=== PATIENT | male | born 1935 | race Caucasian/White ===

== ENCOUNTER → 2016-10-12 | Outpatient (CLI) | payer OTHER, MEDICARE ==
[~2016-10-12] MED LIST: IOPAMIDOL (ISOVUE-300) 100 ML BTL IV ONE
[2016-10-12 12:25] LABS: CREATININE 1.8 mg/dL (0.7-1.3)
== END ==
LOC: FIMAGING 11:42
PROVIDERS: ATTEND Internal Medicine
DX: R06.02 Shortness of breath (principal)
CPT/HCPCS: 71275; Q9967

== ENCOUNTER → 2016-10-17 | Outpatient (CLI) | payer OTHER, MEDICARE | LOC: BHFA 13:00 | PROVIDERS: ATTEND Internal Medicine Cardiovascular Disease | DX: R06.02 Shortness of breath (principal) | CPT/HCPCS: 78452; 93017; A9500; J2785 ==

== ENCOUNTER 2016-10-22 14:04 | Inpatient (IN) | payer OTHER, MEDICARE ==
--- NOTE | 2016-10-22 14:35 | CPEKG ---
Heart Rate: 124 RR Interval: 484 QRSD Interval: 156 QT Interval: 380 QTC Interval: 546 QRS Trona: -5 T Wave Trona: 170 EKG Severity - ABNORMAL ECG - EKG Impression: ATRIAL FIBRILLATION EKG Impression: RUN OF VENTRICULAR PREMATURE COMPLEXES EKG Impression: IVCD, CONSIDER ATYPICAL LBBB Electronically Signed By: Fredo Henderson 22-Oct-2016 14:43:16
[2016-10-22] MEDS ORDERED: NITROGLYCERIN 2% 1 GM PACKET TP ONE (14:47)
[2016-10-22] MEDS ORDERED: FUROSEMIDE 40 MG/4 ML VIAL IVP ONE (14:48)
[2016-10-22 14:53] LABS: % IMMATURE GRANULYOCYTES 0.2 % (0.0-1.1); ABSOLUTE IMMATURE GRANULOCYTES 0.01 10^3/uL (0.00-0.10); ADD DIFF? NO; ADD MORPH? NO; ADD SCAN? NO; ATYPICAL LYMPHOCYTE FLAG 10 (0-99); FRAGMENT RBC FLAG 0 (0-99); HEMATOCRIT 40.5 % (40.0-51.0); HEMOGLOBIN 13.2 g/dL (13.7-17.5); LEFT SHIFT FLG 0 (0-99); LIPEMIA HEMOLYSIS FLAG 80 (0-99); MEAN CELL HEMOGLOBIN 32.8 pg (27.9-34.1); MEAN CELL HEMOGLOBIN CONCENTR. 32.6 g/dL (32.4-36.7); MEAN CELL VOLUME 100.7 fL (81.5-99.8); MEAN PLATELET VOLUME 12.6 fL (8.7-11.7); PLATELET CLUMPS FLAG 0 (0-99); PLATELET COUNT 124 10^3/uL (150-400); RED BLOOD CELL COUNT 4.02 10^6/uL (4.40-6.38); RED CELL DISTRIBUTION WIDTH 14.3 % (11.5-15.2)
--- NOTE | 2016-10-22 14:56 | EDPHY ---
H & P Stated Complaint: SOB, Weakness-from [facility], EKG A flutter Time Seen by Provider: 10/22/16 14:28 HPI/ROS: CHIEF COMPLAINT: SHORTNESS OF BREATH HISTORY OF PRESENT ILLNESS: Patient is an 81-year-old man with a history of CHF comes to the emergency department from the [facility] complaining of shortness of breath. Dr. Carmona called prior to his arrival. He recommended admission to the hospitalist service. The patient has a history of atrial fibrillation as well that is worsened over last couple of months. He is on Coumadin. 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 He also had a catheterization last year that was unremarkable and a patent LAD stent from 2006. The patient is comfortable but desaturates with exertion. He he does also have some lower extremity edema compared to baseline. REVIEW OF SYSTEMS: Constitutional: denies: chills, fever, recent illness, recent injury EENTM: denies: blurred vision, double vision, nose congestion Respiratory: see HPI Cardiac: denies: chest pain, irregular heart rate, lightheadedness, palpitations Gastrointestinal/Abdominal: denies: abdominal pain, diarrhea, nausea, vomiting, blood streaked stools Genitourinary: denies: dysuria, frequency, hematuria, pain Musculoskeletal: denies: joint pain, muscle pain Skin: denies: lesions, rash, jaundice, bruising Neurological: denies: headache, numbness, paresthesia, tingling, dizziness, weakness Hematologic/Lymphatic: denies: blood clots, easy bleeding, easy bruising Immunologic/allergic: denies: HIV/AIDS, transplant EXAM: GENERAL: Well-appearing, well-nourished and in no acute distress. HEAD: Atraumatic, normocephalic. EYES: Pupils equal round and reactive to light, extraocular movements intact, sclera anicteric, conjunctiva are normal. ENT: TMs normal, nares patent, oropharynx clear without exudates. Moist mucous membranes. NECK: Normal range of motion, supple without lymphadenopathy or JVD. LUNGS: Lower lobe crackles HEART: Regular rate and rhythm without murmurs, rubs or gallops. ABDOMEN: Soft, nontender, normoactive bowel sounds. No guarding, no rebound. No masses appreciated. BACK: No CVA tenderness, no spinal tenderness, step-offs or deformities EXTREMITIES: 1+ edema NEUROLOGICAL: Cranial nerves II through XII grossly intact. Normal speech, normal gait. 5/5 strength, normal movement in all extremities, normal sensation PSYCH: Normal mood, normal affect. SKIN: Warm, dry, normal turgor, no visible rashes or lesions. Source: Patient Exam Limitations: No limitations - Personal History Current Tetanus/Diphtheria Vaccine: Unsure - Medical/Surgical History Hx Asthma: No Hx Chronic Respiratory Disease: Yes Hx Diabetes: No Hx Cardiac Disease: Yes Hx Renal Disease: No Hx Cirrhosis: No Hx Alcoholism: Yes Hx HIV/AIDS: No Hx Splenectomy or Spleen Trauma: No Other PMH: HTN, COPD, A flutter, [place], high cholesterol, prostate issues, cardiomyopathy, CHF, pulmonary HTN, Stents, Vasecetomy, Shoulder surgery, ETOH. - Family History Significant Family History: No pertinent family hx - Social History Smoking Status: Former smoker Alcohol Use: Sober Drug Use: None Constitutional: Initial Vital Signs Temperature (C) 36.3 C 10/22/16 14:06 Heart Rate 113 H 10/22/16 14:06 Respiratory Rate 18 10/22/16 14:06 Blood Pressure 127/92 H 10/22/16 14:06 O2 Sat (%) 94 10/22/16 14:06 O2 Delivery Mode Room Air Allergies/Adverse Reactions: No Allergies [NKDA] Allergy (Verified 10/22/16 14:14) Home Medications: Medication Instructions Recorded Antiox #11/Om3/Dha/Epa/Lut/Dani 1 each PO 03/24/13 [Ocuvite Adult 50+ Softgel] Aspirin [Aspirin 81mg (OTC)] 81 mg PO DAILY 03/24/13 CARVEDILOL PHOSPHATE [Coreg Cr] 37.5 mg PO BID 03/24/13 Coenzyme Q10 [Co Q-10 30 mg (OTC)] 100 mg PO DAILY 03/24/13 Pravastatin Sodium 20 mg PO 03/24/13 Vit C 1,000 mg BID 03/24/13 Vit D 1,000 iunits 03/24/13 HCTZ (RX) 02/07/16 Lisinopril 10/22/16 Warfarin Sodium 10/22/16 Medical Decision Making - Diagnostics EKG Interpretation: An EKG obtained and was read and documented in trace view. Please see trace view for full reading and report. Atrial fibrillation, worsened compared to previous, no acute ischemic changes, left bundle branch block Imaging: X-ray: [chest x-ray ] was obtained. I viewed the images myself on the PACS system. My interpretation of the images is: Pulmonary edema. The radiologist interpretation is pulmonary edema and left lower lobe infiltrate. ED Course/Re-evaluation: 3:00 p.m. I discussed the case with Dr. Alek Torres who will admit to the hospital service to PCU. 3:30 p.m. we discussed the x-ray results. Will start the patient on antibiotics. I think that the primary problem is his pulmonary edema and CHF. I will therefore hold the sepsis bolus of IV fluids although he will likely qualifies for severe sepsis based on his Coumadin use and INR elevation. IV fluid bolus would likely hurt this patient more than help him. Differential Diagnosis: Partial list of the Differential diagnosis considered include but were not limited to; CHF, pneumonia, and although unlikely based on the history and physical exam, I also considered acute coronary disease, dissection, aneurysm, pneumothorax, COPD. Critical Care Time: Critical care time spent by me, Dr. Henderson exclusive with this patient was 25 minutes, exclusive of the PA time exclusive of procedures. The organ system that was at risk was cardiovascular and I gave treatment for fluid overload with diuretics and vasodilators to prevent worsening of the patient's condition - Data Points Laboratory Results: Laboratory Results 10/22/16 14:30 10/22/16 14:30 10/22/16 10/22/16 10/22/16 14:30 14:30 14:30 WBC 6.06 10^3/uL 10^3/uL (3.80-9.50) RBC 4.02 10^6/uL L 10^6/uL (4.40-6.38) Hgb 13.2 g/dL L g/dL (13.7-17.5) Hct 40.5 % % (40.0-51.0) MCV 100.7 fL H fL (81.5-99.8) MCH 32.8 pg pg (27.9-34.1) MCHC 32.6 g/dL g/dL (32.4-36.7) RDW 14.3 % % (11.5-15.2) Plt Count 124 10^3/uL L 10^3/uL (150-400) MPV 12.6 fL H fL (8.7-11.7) Neut % (Auto) 68.3 % % (39.3-74.2) Lymph % (Auto) 18.2 % % (15.0-45.0) Hinds % (Auto) 11.2 % % (4.5-13.0) Eos % (Auto) 1.3 % % (0.6-7.6) Baso % (Auto) 0.8 % % (0.3-1.7) Nucleat RBC Rel Count 0.0 % % (0.0-0.2) Absolute Neuts (auto) 4.14 10^3/uL 10^3/uL (1.70-6.50) Absolute Lymphs (auto) 1.10 10^3/uL 10^3/uL (1.00-3.00) Absolute Monos (auto) 0.68 10^3/uL 10^3/uL (0.30-0.80) Absolute Eos (auto) 0.08 10^3/uL 10^3/uL (0.03-0.40) Absolute Basos (auto) 0.05 10^3/uL 10^3/uL (0.02-0.10) Absolute Nucleated RBC 0.00 10^3/uL 10^3/uL (0-0.01) Immature Gran % 0.2 % % (0.0-1.1) Immature Gran # 0.01 10^3/uL 10^3/uL (0.00-0.10) Sodium 142 mEq/L mEq/L (134-144) Potassium 4.5 mEq/L mEq/L (3.5-5.2) Chloride 104 mEq/L mEq/L (97-110) Carbon Dioxide 24 mEq/l mEq/l (22-31) Anion Gap 14 mEq/L mEq/L (8-16) BUN 48 mg/dL H mg/dL (7-23) Creatinine 1.8 mg/dL H mg/dL (0.7-1.3) Estimated GFR 36 Glucose 100 mg/dL mg/dL (70-100) Calcium 9.5 mg/dL mg/dL (8.5-10.4) Total Bilirubin 1.0 mg/dL mg/dL (0.1-1.4) Troponin I 0.018 ng/mL ng/mL (0-0.034) NT-Pro-B Natriuret Pep 82895 pg/mL H pg/mL (0-450) Medications Given: Discontinued Medications Furosemide (Lasix Injection) 40 mg IVP EDNOW ONE Stop: 10/22/16 14:49 Last Admin: 10/22/16 15:15 Dose: 40 mg Levofloxacin/Dextrose (Levaquin 750 Mg (Premix)) 150 mls @ 100 mls/hr IV EDNOW ONE PRN Reason: Protocol Stop: 10/22/16 16:59 Last Admin: 10/22/16 17:18 Dose: Not Given Nitroglycerin (Nitro-Bid 2%) 1 inch TP EDNOW ONE Stop: 10/22/16 14:48 Last Admin: 10/22/16 15:15 Dose: 1 inch Sodium Chloride (Ns *For Sepsis Order Set Only*) 2,558 ml 30 ml/kg (2558 ml) IV ONCE ONE Stop: 10/22/16 15:32 Last Admin: 10/22/16 15:50 Dose: Not Given Departure - Departure Disposition: [facility] Inpatient Acute Clinical Impression: Severe sepsis Congestive heart failure Qualifiers: Congestive heart failure type: systolic Congestive heart failure chronicity: acute Qualified Code(s): I50.21 - Acute systolic (congestive) heart failure Pneumonia Qualifiers: Pneumonia type: due to unspecified organism Laterality: unspecified laterality Lung location: lower lobe of lung Qualified Code(s): J18.1 - Lobar pneumonia, unspecified organism Condition: Fair
[2016-10-22 15:10] LABS: ANION GAP 14 mEq/L (8-16); CALCIUM 9.5 mg/dL (8.5-10.4); CARBON DIOXIDE 24 mEq/l (22-31); CHLORIDE 104 mEq/L (97-110); CREATININE 1.8 mg/dL (0.7-1.3); GLOMERULAR FILTRATION RATE 36; GLUCOSE 100 mg/dL (70-100); POTASSIUM 4.5 mEq/L (3.5-5.2); SODIUM 142 mEq/L (134-144)
[2016-10-22 15:22] LABS: TROPONIN I 0.018 ng/mL (0-0.034)
[2016-10-22] MEDS ORDERED: NS 1,000 ML BAG *FOR SEPSIS ORDER SET ONLY IV ONE (15:31)
[2016-10-22 15:40] LABS: APTT 35.4 SEC (23.0-38.0); INR 2.97 (0.83-1.16); PROTIME(PATIENT) 31.3 SEC (12.0-15.0)
--- NOTE | 2016-10-22 16:18 | CPEKG ---
Heart Rate: 122 RR Interval: 492 QRSD Interval: 152 QT Interval: 404 QTC Interval: 576 QRS Crosby: 64 T Wave Crosby: 262 EKG Severity - ABNORMAL ECG - EKG Impression: ATRIAL FIBRILLATION EKG Impression: VENTRICULAR TRIGEMINY EKG Impression: IVCD, CONSIDER ATYPICAL LBBB Electronically Signed By: Sigifredo Mccauley 24-Oct-2016 16:41:22
[2016-10-22] MEDS ORDERED: METOPROLOL TARTRATE 5 MG/5 ML INJ IVP PRN ×2 (16:49→18:39)
[2016-10-22] MEDS ORDERED: CARVEDILOL 25 MG TAB PO ONE (18:37)
[2016-10-22] MEDS ORDERED: ONDANSETRON 4 MG/2 ML VIAL IVP PRN (18:42)
[2016-10-22] MEDS ORDERED: ACETAMINOPHEN 325 MG TAB PO PRN (18:42)
--- NOTE | 2016-10-22 19:36 | GHP ---
[f rep st] HISTORY AND PHYSICAL DATE OF ADMISSION: 10/22/2016 CHIEF COMPLAINT: Shortness of breath. HISTORY: The patient is an 81-year-old male who has had worsening shortness of breath for the last 3 weeks. Shortness of breath became very severe last night with PND and orthopnea, and he slept in the chair. He had increased lower extremity edema noted this morning. He had chest tightness 9/10. He felt palpitations and his heart rate felt very irregular. His measured heart rate at home was 135. He saw Dr. Carmona in the office earlier today. They did an in-office echo that showed showed an EF of 20%. He was sent to the emergency room. He denies any fever or cough. He has had progres sive dyspnea on exertion for the last couple of weeks and can only go short distances before having to catch his breath. His weight has increased 5-6 pounds in the last week. Dr. Carmona increased hi s diuretics 1 week ago, but it has not helped. PAST MEDICAL HISTORY: 1. Systolic congestive heart failure. Ejection fraction 15%. 2. Atrial fibrillation. 3. Coronary artery disease status post stent to the LAD in 2006. He had a followup catheterization in 2010 with no intervention. 4. BPH status post TURP. 5. COPD. MEDICATIONS: Please see computer record for a full detailed list. ALLERGIES: No known drug allergies. SOCIAL HISTORY: Quit smoking in 1982 on his 48th birthday. Quit alcohol 2-3 years ago and does adm it to heavy alcohol in the past. He lives with his . REVIEW OF SYSTEMS: Complete review of systems obtained. Review of systems is negative regarding co nstitutional, HEENT, GI, pulmonary, cardiovascular, , hematology, skin, musculoskeletal, endocrine , psych, except for positives noted in HPI. FAMILY HISTORY: Reviewed, noncontributory to presenting complaint. PHYSICAL EXAMINATION: GENERAL: Well-developed, well-nourished male in no acute distress. Temperat ure is 36.6, pulse 113, blood pressure 127/89, saturating 94% on room air. EYES: Normal conjunctiv ae. Pupils react to light. ENT: Normal ears and nose. Hearing intact. Normal lips and teeth. O ropharynx moist. NECK: Trachea midline. No thyromegaly. CHEST: Normal respiratory effort. LUNG S: Faint bibasilar rales. CARDIOVASCULAR: Irregular, tachycardic. No murmur. Trace lower extrem ity edema. Positive JVD, mild. ABDOMEN: Soft, nontender. No hepatosplenomegaly. SKIN: Warm, dr y, intact. No rash. MUSCULOSKELETAL: No cyanosis or clubbing. Strength is 5/5 in upper and lower extremities. NEURO: Cranial nerves intact. Normal sensation to light touch. PSYCH: He is alert and oriented x3. Normal affect. Normal judgment and insight. Normal memory. LABORATORY DATA: White count 6.6, hematocrit 40.5, platelets 124. Sodium 142, potassium 4.5, chlor garrett 104, bicarb 24, BUN 48, creatinine 1.8, glucose 100. Troponin 0.018. INR is 2.97. EKG reviewe d by me. My personal interpretation is atrial fibrillation with PVCs and atypical left bundle branc h block. Chest x-ray reviewed by me. My personal interpretation is mostly unremarkable, perhaps so me mild congestive heart failure. I am not too concerned regarding infiltrate. Medical records have been reviewed. I reviewed the outpatient medical records which accompanied him from [facility]. Dr. Carmona felt he was in congestive heart failure and also needed a full card iac evaluation. Inpatient medical chart reveals cardiac catheterization in 2010 for which no interv ention was performed. ASSESSMENT AND PLAN: 1. Acute on chronic systolic congestive heart failure. I suspect his uncontrolled rapid atrial fib rillation is contributing. Ejection fraction is only 20%, although it has been this low in the past . Will need to get echocardiogram from [facility] in the morning and ask Cardiology to consult. Will continue IV Lasix. 2. Chest pain. Will follow serial troponins. I will make him n.p.o. after midnight in anticipatio n of cardiac catheterization versus stress testing. 3. Acute renal failure. He is above his baseline creatinine, although I do suspect he is volume ov erloaded. Perhaps he is having cardiorenal syndrome. Will follow creatinine. 4. Rapid atrial fibrillation. I will increase his beta blockade as his blood pressure tolerates. If he is still in uncontrolled AFib, could consider amiodarone. I would avoid calcium channel block ers given his low ejection fraction. 5. Coronary artery disease status post stent to the LAD in 2006. Will give him an aspirin and chec k his lipids on pravastatin. CODE STATUS: Full. ADMISSION STATUS: Will admit to inpatient. Anticipate greater than 2 midnights given his medical a nd cardiac complexity. DVT PROPHYLAXIS: He is low risk given his chronic anticoagulation on warfarin. /[id number]/MODL
[2016-10-22] MEDS: WARFARIN SODIUM 5 MG TAB PO SCH (20:09)
[2016-10-22] MEDS: PRAVASTATIN SODIUM 20 MG TAB PO SCH (20:09)
[2016-10-23 05:22] LABS: % IMMATURE GRANULYOCYTES 0.4 % (0.0-1.1); ABSOLUTE IMMATURE GRANULOCYTES 0.02 10^3/uL (0.00-0.10); ADD DIFF? NO; ADD MORPH? NO; ADD SCAN? NO; ATYPICAL LYMPHOCYTE FLAG 10 (0-99); FRAGMENT RBC FLAG 0 (0-99); HEMATOCRIT 35.2 % (40.0-51.0); HEMOGLOBIN 11.9 g/dL (13.7-17.5); LEFT SHIFT FLG 0 (0-99); LIPEMIA HEMOLYSIS FLAG 90 (0-99); MEAN CELL HEMOGLOBIN 33.2 pg (27.9-34.1); MEAN CELL HEMOGLOBIN CONCENTR. 33.8 g/dL (32.4-36.7); MEAN CELL VOLUME 98.3 fL (81.5-99.8); MEAN PLATELET VOLUME 12.9 fL (8.7-11.7); PLATELET CLUMPS FLAG 0 (0-99); PLATELET COUNT 104 10^3/uL (150-400); RED BLOOD CELL COUNT 3.58 10^6/uL (4.40-6.38)
[2016-10-23 05:35] LABS: INR 3.11 (0.83-1.16); PROTIME(PATIENT) 32.5 SEC (12.0-15.0)
[2016-10-23 05:38] LABS: ANION GAP 11 mEq/L (8-16); CARBON DIOXIDE 24 mEq/l (22-31); CHLORIDE 104 mEq/L (97-110); CHOLESTEROL 105 mg/dL (140-220); CREATININE 1.7 mg/dL (0.7-1.3); GLOMERULAR FILTRATION RATE 39; GLUCOSE 72 mg/dL (70-100); HIGH DENSITY LIPOPROTEIN 35 mg/dL (40-65); LDL/HDL RATIO 1.51 RATIO (1.00-3.64); LOW DENSITY LIPOPROTEIN 53 mg/dL (80-100); NON-HIGH DENSITY LIPOPROTEIN 70 mg/dL (90-129); POTASSIUM 4.2 mEq/L (3.5-5.2); SODIUM 139 mEq/L (134-144); TRIGLYCERIDE 86 mg/dL (40-150); VERY LOW DENSITY LIPOPROTEINS 17 mg/dL (8-25)
[2016-10-23] MEDS: ASPIRIN EC 81 MG TAB PO SCH (07:54)
[2016-10-23] MEDS ORDERED: CARVEDILOL 25 MG TAB PO SCH (09:00)
[2016-10-23] MEDS ORDERED: PROPOFOL 200 MG/20 ML VIAL IVP ONE (09:16)
[2016-10-23] MEDS ORDERED: MIDAZOLAM 2 MG/2 ML VIAL IVP ONE (09:16)
[2016-10-23] MEDS ORDERED: diphenhydrAMINE 25 MG CAP PO ONE ×2 (09:16→09:24)
[2016-10-23] MEDS ORDERED: DIAZEPAM 5 MG TAB PO ONE ×2 (09:16→09:24)
[2016-10-23] MEDS ORDERED: NS 500 ML IV ONE (09:16)
[2016-10-23] MEDS ORDERED: ASPIRIN EC 325 MG TAB PO ONE ×2 (09:16→09:24)
[2016-10-23] MEDS ORDERED: TEMAZEPAM 15 MG CAP PO PRN (09:16)
[2016-10-23] MEDS ORDERED: NITROGLYCERIN 0.4 MG BTL SL PRN (09:16)
[2016-10-23] MEDS ORDERED: BENZOCAINE UNIT DOSE SPRAY HURRICAINE MM ONE (09:16)
[2016-10-23] MEDS ORDERED: fentaNYL 100 MCG/2 ML INJ IVP ONE (09:16)
--- NOTE | 2016-10-23 10:28 | GCON ---
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 Carmona HISTORY OF PRESENT ILLNESS: The patient is an 81-year-old male seen by Dr. Carmona in the office on 10/22/2016 with acute worsening of progressive dyspnea with associated PND, orthopnea. He reports over the past several weeks he has noted dyspnea with minimal exertion. He will start walking and, within a couple of feet, will start feeling very short of breath. On the night prior to admission, he was so short of breath he had to get up to sleep in a chair. He has also noted lower extremity edema. He denies any presyncope, syncope. He has had a sensation of chest tightness that has worsened to a 9/10 discomfort on day of admission. Today he reports that he is comfortable in bed without dyspnea. He denies any further chest tightness. He has not noted any PND, orthopnea, or peripheral edema. He denies any palpitations, presyncope, syncope. PAST MEDICAL HISTORY: 1. [id number] systolic CHF with recent ejection fraction measured to be 20%. 2. CAD with PTCA and stenting in the LAD in 2006. Last cardiac catheterization on 02/07/2016 showed patent stent. He had high-grade stenosis in a small diagonal that was not amenable to PCI. His right heart catheterization showed mean pulmonary artery pressure of 21. 3. Paroxysmal atrial fibrillation. 4. COPD. 5. BPH, status post TURP. MEDICATIONS: Outpatient medications include: Furosemide 40 mg p.o. daily, carvedilol 12.5 mg in a.m. and 12.5 mg in the evening, pravastatin 20 mg p.o. daily, multivitamin, warfarin which was just started yesterday, and Ocuvite. ALLERGIES: No known drug allergies. FAMILY HISTORY: Father of lung cancer at age 82. Mother of bladder cancer. Son in a car accident. Other son is alive and well. SOCIAL HISTORY: Patient quit smoking in 1982. He quit drinking alcohol 2-3 years ago. He lives at home with his . REVIEW OF SYSTEMS: As per HPI. A complete 10-point review of systems was obtained and is negative except for what is dictated in HPI. PHYSICAL EXAM: VITAL SIGNS: BP of 117/89, heart rate of 106, respirations 19, O2 saturation 96% on 2 L/minute, temp of 98.1 degrees Fahrenheit. GENERAL: He is a very pleasant male in no apparent distress. EYES: PERRL. HEAD: Normocephalic, atraumatic. Mucous membranes moist. HEART: Irregularly irregular. LUNGS: Crackles in bilateral bases. ABDOMEN: Soft, nontender with normoactive bowel sounds. : No Can present. SKIN: Warm and dry without edema present. PSYCH: Normal mood and affect for situation. NEURO: No focal deficits detected. DATABASE: 10/22/2016 chest x-ray shows CHF. 12-lead ECG personally interpreted shows atrial fibrillation with likely left bundle-branch block with frequent PVCs. Echo from our office 10/22/2016 showed severe global hypokinesis with an EF of 20%. RV is severely hypokinetic. Left atrium is moderately to severely dilated. RA is moderately severely dilated, and there was moderate MR, [id number] TR, mild pulmonary hypertension with RVSP of 41. Nuclear stress test from 10/2016 shows small, moderate-intensity fixed but partially reversible apical defect consistent with jackson-infarct ischemia, EF of 17%. LABORATORY DATA: CBC with WBC 5.3, hemoglobin 11.9, hematocrit 35.2, platelet count of 104. INR of 3.11. BMP: Sodium 139, potassium 4.2, chloride 104, CO2 of 24, BUN 49, creatinine 1.7. NT-proBNP of 13,400. Troponin 0.018, followed by 0.019, followed by 0.019. Triglycerides 86, total cholesterol 105, LDL 53, HDL of 35. TSH of 2.49. IMPRESSION AND PLAN: The patient is an 81-year-old male known to our office who is admitted with acute congestive heart failure. 1. Acute systolic congestive heart failure. He has had a decrement in his ejection fraction over the last several months. He now presents with severe symptoms of CHF with [employer] functional class IV symptoms. He is being treated currently with IV diuresis with furosemide. He still appears overtly volume overloaded. We will continue to diurese in this admission. Likely etiologies for his CHF are atrial fibrillation with RVR. We also suspect ischemia given his worsening nuclear stress test. We will consider cardiac catheterization prior to discharge. 2. Atrial fibrillation with rapid ventricular rates. His rate control appears to be poor at this time. We will plan for EDIL-guided cardioversion prior to discharge. 3. Ischemic and tachy-mediated cardiomyopathy. The patient is likely a candidate for ICD. We will plan for optimization of medical management. If renal function stays stable, we could consider addition of LAUREANO inhibitor. 4. Ventricular tachycardia. He has what appears to be VT versus atrial fibrillation with aberrant conduction on his telemetry. 5. Chronic kidney disease. His creatinine is now in the 1.7 to 1.8 range, previously 1.3. There may be a component of cardiorenal syndrome as was pointed out by hospitalist admission note. He will be continued on IV diuresis with close monitoring of his renal function. Patient was seen and examined by myself (Garrick) Plan for patient to have a EDIL with cardioversion today. Would refrain from angiogram (recent angiogram without critical lesions noted and INR was >3 today) . It is possible that the correction of the arrhythmia (or slowing of the arrhythmia) would assist with some degree of the CHF symptoms noted. /[id number]/MODL MTDD
[2016-10-23] MEDS ORDERED: PROPOFOL 200 MG/20 ML VIAL ONE (14:16)
--- NOTE | 2016-10-23 14:47 | PDTEE1 ---
EDIL Cardioversion Procedure Procedure: Electrical Cardioversion, Transesophageal Echo Indications: Atrial Fibrillation, Cardiomyopathy Consent: Signed and in Chart Anticoagulation: Warfarin Procedural Details: patient had risks and benefits of the procedure discussed. anesthesia for sedation. consents were signed. hurricaine spray was used for local anesthetic , and the patient was placed on the left lateral position. EDIL probe was placed without difficulty and standard views were obtained. 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 would have repeat EDIL in 1-2 weeks and reassess this finding no complications were noted anesthesia recovered the patient uneventfully would have the patient seen in clinic in 1 week aggressive medication therapy for heart rate reduction consider angiogram, however, INR is supratherapeutic Conclusions: Successful EDIL Conclusion Comment: No cardioversion given the old thrombus to the EMERY Patient Problems: Problems Problem Status Onset Chronic Disease Mgmt/Transitional Care Acute Congestive heart failure Acute Pneumonia Acute Severe sepsis Acute
[2016-10-23] MEDS: FUROSEMIDE 20 MG/2 ML VIAL IVP SCH ×2 (15:50→15:57)
--- NOTE | 2016-10-23 19:20 | HOSPPROG ---
Hospitalist Progress Note Assessment/Plan: * Acute systolic CHF exacerbation - EF 25% -IV lasix * Uncontrolled rapid afib -increase coreg -no cardioversion due to possible LA thrombus -warfarin therapeutic * NSVT -consider AICD * CAD/stent -no recurrence of stenosis per cath today * Acute on chronic renal failure -not that volume overloaded at this time -may want to back off on diuresis Subjective: feels better, less sob Objective: Vital Signs Temp Pulse Resp BP Pulse Ox 36.2 C 88 18 130/91 H 90 L 10/23/16 15:52 10/23/16 15:52 10/23/16 15:52 10/23/16 15:52 10/23/16 15:52 Laboratory Results 10/23/16 04:16 10/23/16 09:16 10/22/16 10/23/16 10/24/16 05:59 05:59 05:59 Intake Total 400 Output Total 900 Balance -500 PT 32.5 SEC (12.0-15.0) H 10/23/16 04:16 INR 3.11 (0.83-1.16) H 10/23/16 04:16 d/w cardiology Mona Blake - they plan cath and cardioversion today tele reviewed - afib, not rate controlled - Physical Exam Constitutional: no apparent distress, appears nourished, not in pain Cardiovascular: regular rate and rhythym, no murmur, rub, or gallop Respiratory: no respiratory distress, no rales or rhonchi, clear to auscultation Gastrointestinal: normoactive bowel sounds, soft, non-tender abdomen, no palpable masses Skin: no rashes or abrasions, no fluctuance, no induration Neurologic: AAOx3, sensation intact bilaterally Psychiatric: interacting appropriately, not anxious, not encephalopathic, thought process linear ICD10 Worksheet Patient Problems: Problems Problem Status Onset Chronic Disease Mgmt/Transitional Care Acute Congestive heart failure Acute Pneumonia Acute Severe sepsis Acute
[2016-10-23] MEDS: CARVEDILOL 25 MG TAB PO SCH (21:47)
[2016-10-23] MEDS: PRAVASTATIN SODIUM 20 MG TAB PO SCH (21:47)
[2016-10-23] MEDS: WARFARIN SODIUM 5 MG TAB PO SCH (21:47)
[2016-10-24 05:30] LABS: % IMMATURE GRANULYOCYTES 0.2 % (0.0-1.1); ABSOLUTE IMMATURE GRANULOCYTES 0.01 10^3/uL (0.00-0.10); ADD DIFF? NO; ADD MORPH? NO; ADD SCAN? NO; ATYPICAL LYMPHOCYTE FLAG 0 (0-99); FRAGMENT RBC FLAG 0 (0-99); HEMATOCRIT 37.4 % (40.0-51.0); HEMOGLOBIN 12.5 g/dL (13.7-17.5); LEFT SHIFT FLG 0 (0-99); LIPEMIA HEMOLYSIS FLAG 80 (0-99); MEAN CELL HEMOGLOBIN 32.6 pg (27.9-34.1); MEAN CELL HEMOGLOBIN CONCENTR. 33.4 g/dL (32.4-36.7); MEAN CELL VOLUME 97.7 fL (81.5-99.8); MEAN PLATELET VOLUME 12.3 fL (8.7-11.7); PLATELET CLUMPS FLAG 0 (0-99); PLATELET COUNT 107 10^3/uL (150-400); RED BLOOD CELL COUNT 3.83 10^6/uL (4.40-6.38); RED CELL DISTRIBUTION WIDTH 13.9 % (11.5-15.2)
[2016-10-24 05:40] LABS: INR 4.16 (0.83-1.16)
[2016-10-24 05:51] LABS: ANION GAP 11 mEq/L (8-16); CALCIUM 8.9 mg/dL (8.5-10.4); CARBON DIOXIDE 22 mEq/l (22-31); CHLORIDE 104 mEq/L (97-110); CREATININE 1.4 mg/dL (0.7-1.3); GLOMERULAR FILTRATION RATE 48; GLUCOSE 81 mg/dL (70-100); POTASSIUM 4.6 mEq/L (3.5-5.2); SODIUM 137 mEq/L (134-144)
[2016-10-24] MEDS: ASPIRIN EC 81 MG TAB PO SCH (09:35)
[2016-10-24] MEDS: CARVEDILOL 25 MG TAB PO SCH ×2 (09:35→21:41)
[2016-10-24] MEDS: FUROSEMIDE 40 MG TAB PO SCH (09:44)
[2016-10-24] MEDS ORDERED: DIGOXIN 500 MCG/2 ML AMP IVP ONE ×2 (14:13→21:00)
[2016-10-24] MEDS ORDERED: FUROSEMIDE 40 MG/4 ML VIAL IVP ONE ×2 (14:15→16:00)
--- NOTE | 2016-10-24 15:40 | HOSPPROG ---
Hospitalist Progress Note Assessment/Plan: * Acute systolic CHF exacerbation - EF 25% -suspect due to poor rate/rhythm control -IV lasix * Uncontrolled rapid afib -increase coreg -no cardioversion due to possible LA thrombus -consider repeat EDIL/cardioversion attempt in few weeks -load IV digoxin for improved rate control -warfarin therapeutic -hold today * NSVT -consider AICD * CAD/stent -consider eventual cath - but CAD unlikely cause of decompensation * Acute on chronic renal failure -hopefully better renal perfusion with rate control Subjective: Still hypoxic, overall feels like less fluid Objective: Vital Signs Temp Pulse Resp BP Pulse Ox 36.4 C 110 H 20 90/64 L 90 L 10/24/16 08:10 10/24/16 11:42 10/24/16 11:42 10/24/16 11:42 10/24/16 11:42 Laboratory Results 10/24/16 04:58 10/24/16 04:58 10/23/16 10/24/16 10/25/16 05:59 05:59 05:59 Intake Total 400 400 Output Total 900 1600 Balance -500 -1200 PT 41.0 SEC (12.0-15.0) H D 10/24/16 04:58 INR 4.16 (0.83-1.16) H 10/24/16 04:58 d/w Dr. Mccauley - no cath, rate control afib, digoxin recommended tele reviewed - rapid rate afib - Physical Exam Constitutional: no apparent distress, appears nourished, not in pain Cardiovascular: irregularly irregular, JVD, tachycardia, No edema Respiratory: no respiratory distress, no rales or rhonchi, clear to auscultation Gastrointestinal: normoactive bowel sounds, soft, non-tender abdomen, no palpable masses Skin: no rashes or abrasions, no fluctuance, no induration Neurologic: AAOx3, sensation intact bilaterally Psychiatric: interacting appropriately, not anxious, not encephalopathic, thought process linear ICD10 Worksheet Patient Problems: Problems Problem Status Onset Chronic Disease Mgmt/Transitional Care Acute Congestive heart failure Acute Pneumonia Acute Severe sepsis Acute
--- NOTE | 2016-10-24 15:48 | PDCARPN ---
Cardiology Progress Note Chief Complaint: no complaints voiced today. Assessment/Plan: Assessment: Patient is an 81 y/o male, known to [facility] (Dr. 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 Patient was sent over to hospital and diuresis was continued with initial plans for the patient to have angiogram. Clinical presentation and labs (elevation in INR and lack of elevation to cardiac biomarkers) without acute need for pursuit of invasive angiography. Initial plans to have EDIL with possible cardioversion were implemented. EDIL with what appears to be old thrombus to the left atrial appendage, but uncertainty on the duration of this finding, so no cardioversion was performed. Today, ongoing elevation with heart rates noted, as well as further elevation to the INR ( without cause). Plan: (1) Would maintain PO diuresis plan as at present - the patient does not appear to be volume overloaded (2) Would have digoxin load to assist with heart rate control - - 0.5 mg then 0.25 mg and start to 0.125 mcg tomorrow morning (3) Hold coumadin this evening - would not pursue reversal with (a) atrial fibrillation ongoing and (b) what appears to be thrombus to the left atrial appendage (4) BMP assessment today (two days from the last assessment) Subjective: No voiced cardiovascular complaints Reviewed/Discussed With: hospitalist, multidisciplinary team Time Spent With Patient: 25 minutes Objective: Vital Signs (8 Hrs) Temp Pulse Resp BP Pulse Ox 10/24/16 11:42 110 H 20 90/64 L 90 L 10/24/16 11:06 87 L 10/24/16 08:10 36.4 C 124 H 19 102/80 93 Intake/Output (24 Hrs) 10/23/16 10/24/16 10/25/16 05:59 05:59 05:59 Intake Total 400 400 Output Total 900 1600 Balance -500 -1200 Intake: Oral (ml) 400 400 Output: Urine (ml) 900 1600 Urinal 900 1600 Other: Weight 83.8 kg Intake Quantity npo Yes Sufficient Number of Voids Toilet 1 Result Diagrams: 10/24/16 04:58 10/24/16 04:58 Cardiac Labs: Cardiac Lab Results (72 Hrs) 10/23/16 00:25 Troponin I 0.019 Telemetry: atrial fibrillation with rapid ventricular response - Physical Exam Constitutional: WDWN, no apparent distress, No general pain Eyes: PERRL, EOMI Ears, Nose, Mouth, Throat: moist mucous membranes Cardiovascular: systolic murmur, irregularly irregular, No jugular vein distention Peripheral Pulses: 2+: dorsalis-pedis (R), dorsalis-pedis (L) Respiratory: clear to auscultate bilat, no crackles, no wheezes, No reduced air movement Gastrointestinal: normoactive bowel sounds Skin: no edema Musculoskeletal: no muscular tenderness Neurologic: AAOx3, CN II-XII grossly intact Psychiatric: cooperative, interactive, following commands ICD10 Worksheet Patient Problems: Problems Problem Status Onset Chronic Disease Mgmt/Transitional Care Acute Congestive heart failure Acute Pneumonia Acute Severe sepsis Acute
[2016-10-24] MEDS: PRAVASTATIN SODIUM 20 MG TAB PO SCH (21:41)
[2016-10-25 05:08] LABS: INR 3.56 (0.83-1.16); PROTIME(PATIENT) 36.2 SEC (12.0-15.0)
[2016-10-25 05:22] LABS: CALCIUM 8.8 mg/dL (8.5-10.4); CARBON DIOXIDE 28 mEq/l (22-31); CHLORIDE 101 mEq/L (97-110); CREATININE 1.4 mg/dL (0.7-1.3); GLOMERULAR FILTRATION RATE 48; GLUCOSE 83 mg/dL (70-100); SODIUM 138 mEq/L (134-144)
[2016-10-25 05:36] VITALS: TEMP 97.9
[2016-10-25 06:08] LABS: ANION GAP 9 mEq/L (8-16); POTASSIUM 4.2 mEq/L (3.5-5.2)
--- NOTE | 2016-10-25 08:53 | PDCARPN ---
Cardiology Progress Note Chief Complaint: no cardiovascular complaints today. Assessment/Plan: Assessment: 10-26-16 No cardiovascular complaints this morning. Patient was to have angiogram, but after review of information, we opted to pursue EDIL with possible cardioversion (given the fact that the patient had a recent angiogram less than one year ago) . EDIL with possible thrombus to the EMERY (likely old), so we opted to not pursue cardioversion. Heart rates were elevated yesterday and digoxin was started (loaded) with some reduction in heart rates noted today. INR was supratherapeutic yesterday (>4) and trending down today. 10-24-16 Patient is an 81 y/o male, known to [facility] (Dr. 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 Patient was sent over to hospital and diuresis was continued with initial plans for the patient to have angiogram. Clinical presentation and labs (elevation in INR and lack of elevation to cardiac biomarkers) without acute need for pursuit of invasive angiography. Initial plans to have EDIL with possible cardioversion were implemented. EDIL with what appears to be old thrombus to the left atrial appendage, but uncertainty on the duration of this finding, so no cardioversion was performed. Today, ongoing elevation with heart rates noted, as well as further elevation to the INR ( without cause). Plan: (1) Continue digoxin at 0.125 mg PO (2) Would continue coumadin, but maintain hold today given the elevation noted (3) No BMP was performed yesterday, but should be assessed to determine if volume therapies are working Subjective: No cardiovascular complaints Reviewed/Discussed With: hospitalist, multidisciplinary team Time Spent With Patient: 15 minutes Objective: Vital Signs (8 Hrs) Temp Pulse Resp BP Pulse Ox 10/25/16 04:00 36.6 C 94 19 131/77 H 92 Intake/Output (24 Hrs) 10/24/16 10/25/16 10/26/16 05:59 05:59 05:59 Intake Total 400 1855 Output Total 1600 3450 Balance -1200 -1595 Intake: Oral (ml) 400 1855 Output: Urine (ml) 1600 3450 Toilet 1300 Urinal 1600 2150 Other: Weight 83.8 kg 81.2 kg Intake Quantity Yes Sufficient Number of Voids Toilet 1 4 Number of Stools Urinal 1 Result Diagrams: 10/24/16 04:58 10/25/16 04:38 Cardiac Labs: Cardiac Lab Results (72 Hrs) 10/23/16 00:25 Troponin I 0.019 Telemetry: atrial fibrillation with some reduction in heart rates noted - Physical Exam Constitutional: WDWN, healthy appearing, no apparent distress Eyes: PERRL, EOMI Ears, Nose, Mouth, Throat: moist mucous membranes Cardiovascular: systolic murmur, irregularly irregular Peripheral Pulses: 2+: dorsalis-pedis (R), dorsalis-pedis (L) Respiratory: clear to auscultate bilat, no crackles, no wheezes Gastrointestinal: normoactive bowel sounds Skin: no rashes, no edema Musculoskeletal: no muscular tenderness Neurologic: AAOx3, CN II-XII grossly intact Psychiatric: cooperative, interactive, following commands ICD10 Worksheet Patient Problems: Problems Problem Status Onset Chronic Disease [facility]/Transitional Care Acute Congestive heart failure Acute Pneumonia Acute Severe sepsis Acute
[2016-10-25] MEDS: ASPIRIN EC 81 MG TAB PO SCH (09:33)
[2016-10-25] MEDS: CARVEDILOL 25 MG TAB PO SCH (09:34)
[2016-10-25] MEDS: FUROSEMIDE 40 MG TAB PO SCH (09:34)
[2016-10-25] MEDS ORDERED: DIGOXIN 125 MCG TAB PO SCH ×2 (10:00)
[2016-10-25] MEDS ORDERED: DIGOXIN 50 MCG/ML UDSYR PO SCH (10:00)
[2016-10-25 10:04] VITALS: BP 106/88; PULSE 111; RESP 28; O2SAT 90
--- NOTE | 2016-10-25 18:16 | GDS ---
[f rep st] DISCHARGE SUMMARY DISCHARGE DIAGNOSES: 1. Acute systolic congestive heart failure exacerbation, ejection fraction 25%. 2. Uncontrolled rapid atrial fibrillation. 3. Nonsustained ventricular tachycardia. 4. Coronary artery disease, status post previous stent. 5. [id number] renal failure. HISTORY: The patient is an 81-year-old male, who presented with CHF exacerbation. He was in an unc ontrolled atrial fibrillation with rapid rates to 130. Cardiology attempted cardioversion, but his EDIL showed a possible left atrial thrombus and so cardioversion was not possible. He is chronically anticoagulated on warfarin, which is being continued. We increased his Coreg and added digoxin, wi th an IV digoxin load for improved rate control. On these measures, his rate is adequately controll ed at time of hospital discharge. He is successfully diuresed with IV Lasix. He will be discharged on Lasix, when previously he was on hydrochlorothiazide for a diuretic. He has extensive ventricul ar ectopy and he may be a candidate for an AICD. This can be discussed with Dr. Rich when he follo ws up in CHF clinic. Cardiac ischemia was felt to be unlikely the cause of his decompensation, so w tyler did not do a cardiac catheterization. His renal function actually improved with diuresis because I think he was getting poor renal perfusion due to his rapid heart rate. DISCHARGE MEDICATIONS: Please see computer's record for full detailed list. New medications: 1. Coreg increased to 25 mg p.o. twice daily. 2. Lasix 40 mg p.o. daily. 3. Digoxin 125 mcg p.o. daily. DISCHARGE INSTRUCTIONS: Follow up with Dr. Blake Rich in CHF clinic. First appointment made for Dyan , at 8:45 a.m. Greater 30 minutes' time was spent arranging this discharge. Patient seen and examined by me on day of discharge. /[id number]/MODL
== END 2016-10-25 12:15 | disposition home or self-care (01) | DRG 292 ==
LOC: F2W 15:58 → OBSVTOIN 18:40
PROVIDERS: ADMIT Hospitalist; ATTEND Internal Medicine
PROC: B246ZZ4 Ultrasonography of Right and Left Heart, Transesophageal (ICD-10-PCS; principal; 2016-10-23)
DX: I50.23 Acute on chronic systolic (congestive) heart failure (principal); I47.2 Ventricular tachycardia; I13.0 Hypertensive heart and chronic kidney disease with heart failure and stage 1 through stage 4 chronic kidney disease, or unspecified chronic kidney disease; N17.9 Acute kidney failure, unspecified; N18.9 Chronic kidney disease, unspecified; I48.0 Paroxysmal atrial fibrillation; I51.89 Other ill-defined heart diseases; I25.10 Atherosclerotic heart disease of native coronary artery without angina pectoris; J44.9 Chronic obstructive pulmonary disease, unspecified; Z95.5 Presence of coronary angioplasty implant and graft
CPT/HCPCS: 96374; 97116-GP; 97161-GP; 97165-GO; G8978-GP-CI; G8979-GP-CI; G8987-GO-CI; G8988-GO-CH; G8989-GO-CH; J1160; J2704

== ENCOUNTER → 2016-10-22 | Outpatient (CLI) | payer OTHER, MEDICARE | LOC: BHFA 09:15 | PROVIDERS: ATTEND Internal Medicine | DX: I42.8 Other cardiomyopathies (principal); R06.00 Dyspnea, unspecified ==

== ENCOUNTER 2016-10-26 13:59 | Emergency (ER) | payer OTHER, MEDICARE ==
[2016-10-26 14:09] VITALS: BP 125/56; PULSE 69; RESP 18; TEMP 97.9; O2SAT 94
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
== END 2016-10-26 15:05 | disposition home or self-care (01) ==
LOC: CED 13:59
DX: S60.032A Contusion of left middle finger without damage to nail, initial encounter (principal); W22.01XA Walked into wall, initial encounter; Y92.009 Unspecified place in unspecified non-institutional (private) residence as the place of occurrence of the external cause; Y93.89 Activity, other specified
CPT/HCPCS: 73130; G0463

== ENCOUNTER → 2016-11-22 | Outpatient (CLI) | payer OTHER, MEDICARE | LOC: BHFA 09:30 | PROVIDERS: ATTEND Internal Medicine Cardiovascular Disease | DX: I50.21 Acute systolic (congestive) heart failure (principal); I48.91 Unspecified atrial fibrillation; N18.9 Chronic kidney disease, unspecified ==

== ENCOUNTER → 2016-12-12 | Day surgery (SDC) | payer OTHER, MEDICARE ==
[~2016-12-12] MED LIST changes: +BENZOCAINE UNIT DOSE SPRAY HURRICAINE MM ONE; -IOPAMIDOL (ISOVUE-300) 100 ML BTL IV ONE; +LIDOCAINE 2% 100 MG/5 ML SYR ONE; +MIDAZOLAM 2 MG/2 ML VIAL IVP ONE; +NS 500 ML IV ONE; +PHENYLEPHRINE HCL 100 MCG/ML SYR ONE; +PROPOFOL 200 MG/20 ML VIAL IVP ONE; +PROPOFOL 200 MG/20 ML VIAL ONE; +SUCCINYLCHOLINE CHLORIDE*ANESTHESIA ONLY*200 MG/10 ML SYR IVP ONE; +fentaNYL 100 MCG/2 ML INJ IVP ONE
--- NOTE | 2016-12-12 08:06 | CPEKG ---
Heart Rate: 107 RR Interval: 561 QRSD Interval: 158 QT Interval: 400 QTC Interval: 534 QRS [place]: 40 T Wave [place]: 253 EKG Severity - ABNORMAL ECG - EKG Impression: ATRIAL FIBRILLATION, V-RATE 55-122 EKG Impression: PAIRED VENTRICULAR PREMATURE COMPLEXES EKG Impression: LEFT BUNDLE BRANCH BLOCK Electronically Signed By: Daniel Bell 12-Dec-2016 12:27:18
[2016-12-12 08:32] LABS: APTT 29.4 SEC (23.0-38.0); INR 1.33 (0.83-1.16); PROTIME(PATIENT) 16.5 SEC (12.0-15.0)
[2016-12-12 08:48] LABS: ANION GAP 11 mEq/L (8-16); CALCIUM 9.3 mg/dL (8.5-10.4); CARBON DIOXIDE 26 mEq/l (22-31); CHLORIDE 104 mEq/L (97-110); CREATININE 1.6 mg/dL (0.7-1.3); GLOMERULAR FILTRATION RATE 41; GLUCOSE 87 mg/dL (70-100); MAGNESIUM 2.2 mg/dL (1.6-2.3); POTASSIUM 4.3 mEq/L (3.5-5.2); SODIUM 141 mEq/L (134-144)
[2016-12-12 08:53] LABS: DIGOXIN < 0.4 ng/mL (0.8-2.0)
--- NOTE | 2016-12-12 09:40 | CPEKG ---
Heart Rate: 58 RR Interval: 1034 P-R Interval: 144 QRSD Interval: 158 QT Interval: 468 QTC Interval: 460 P [place]: 100 QRS [place]: 14 T Wave [place]: 196 EKG Severity - ABNORMAL ECG - EKG Impression: SINUS RHYTHM WITH INTERMITTENT BRADYCARDIA EKG Impression: MULTIPLE VENTRICULAR PREMATURE COMPLEXES EKG Impression: LEFT BUNDLE BRANCH BLOCK Electronically Signed By: Daniel Bell 12-Dec-2016 12:25:40
--- NOTE | 2016-12-12 11:03 | ECHO ---
[id number] + + [address] : : [facility] [address] : : [phone] + Transesophageal Echocardiographic Report + ----+ :Name: DRE BENITES CStudy Date: 12/12/2016 08:59 AM : : Hospital Admission Number: [id number] Location: CVC: :: 1935 Gender: Male : :Age: 81 yrs Race: WH : :Reason For Study: Eval LV Fx : :History: Pre cardioversion : + ----+ Left Ventricle Severely reduced LV systolic function with a LVEF of 25-30%. No clot seen in LV in particular LV apex. Atria No thrombus is detected in the left atrial appendage. No left atrial mass or thrombus visualized. The rhythm is atrial fibrillation. Mitral Valve The mitral valve is normal. There is no mitral valve stenosis. Moderate MR without MV prolapse. Tricuspid Valve Normal tricuspid valve. There is trace tricuspid regurgitation. Aortic Valve The aortic valve is normal in structure and function. The aortic valve is trileaflet. There is no aortic stenosis. Trivial AI noted. Pulmonic Valve The pulmonic valve is normal in structure and function. Conclusion A 2D transesophageal echocardiogram with color flow Doppler was performed. 1)Severely reduced LV systolic function with a LVEF of 25-30%. 2)Moderate to severe LAE. 3)No echogenic smoke or clots seen in any of four cardiac chambers or LA appendage. EMERY has some moderate trabeculations and PW doppler of 20cm/sec. 4)Trivial AI without . Trileaflet Aortic valve noted. 5)Moderate MR without MV prolapse. 6)Trivial TR noted. 7)Normal size ascending thoracic aorta (3.2cm) with mild-moderate atheroma and no dissection flap. Final Reading Physician: Blake Rich electronically signed on 12/12/2016 11:01 AM Ordering Physician: Blake Rich Performed By: Blake Rich
--- NOTE | 2016-12-12 12:47 | CPR ---
[f rep st] NONINVASIVE CARDIAC PROCEDURE REPORT DATE OF PROCEDURE: 12/12/2016 PROCEDURE PERFORMED: Electrical cardioversion INDICATIONS: Fatigue, hypotension, atrial fibrillation, and heart failure. CONSENT: Signed. Risks, benefits, and alternatives discussed with patient and his . They wished to proceed. TECHNICAL DIFFICULTIES: None. MEDICATIONS USED DURING PROCEDURE: Propofol IV per anesthesia service with continuous pulse oximetry and hemodynamic monitoring. DESCRIPTION OF PROCEDURE: The patient immediately beforehand had a transesophageal echo, which demonstrated no evidence of clot or thrombus in any of the 4 cardiac chambers or left atrial appendage. He was initially in atrial fibrillation with a ventricular rate of 99 beats per minute and a blood pressure of 117/69. With AP pads, he received a 300 Joule synchronized shock which converted him to sinus bradycardia at 56 bpm post post-CV BP of 97/55. He awoke from sedation with no new neurological deficits. Complications: None Final Impression: 1)Successful cardioversion of afib to sinus bradycardia with single 300 joule synchronized shock. /[id number]/MODL MTDD
== END | disposition home or self-care (01) ==
LOC: FCATH 07:42
PROVIDERS: ATTEND Internal Medicine Cardiovascular Disease
PROC: B245ZZ4 Ultrasonography of Left Heart, Transesophageal (ICD-10-PCS; principal; 2016-12-12)
PROC: 5A2204Z Restoration of Cardiac Rhythm, Single (ICD-10-PCS; principal; 2016-12-12)
DX: I48.91 Unspecified atrial fibrillation (principal); I25.10 Atherosclerotic heart disease of native coronary artery without angina pectoris; I50.21 Acute systolic (congestive) heart failure; N18.9 Chronic kidney disease, unspecified; I13.0 Hypertensive heart and chronic kidney disease with heart failure and stage 1 through stage 4 chronic kidney disease, or unspecified chronic kidney disease; Z95.5 Presence of coronary angioplasty implant and graft; D64.9 Anemia, unspecified; N40.0 Benign prostatic hyperplasia without lower urinary tract symptoms; J44.9 Chronic obstructive pulmonary disease, unspecified
CPT/HCPCS: J0330; J2001; J2370; J2704

== ENCOUNTER 2017-01-02 11:12 | Observation (INO) | payer OTHER, MEDICARE ==
[2017-01-02] MEDS ORDERED: ceFAZolin 2 GM/DEXTROSE 100 ML IV ONE (11:14)
[2017-01-02] MEDS ORDERED: NS 1,000 ML IV ONE (11:14)
[2017-01-02] MEDS ORDERED: BACITRACIN IRRIGATION/NS 50,000 UNITS/1,000 ML BTL IRR ONE (11:14)
[2017-01-02] MEDS ORDERED: DIAZEPAM 5 MG TAB PO ONE (11:14)
[2017-01-02] MEDS ORDERED: diphenhydrAMINE 25 MG CAP PO ONE (11:14)
[2017-01-02] MEDS ORDERED: ceFAZolin 2 GM in D5W 100 ML IV ONE (11:30)
--- NOTE | 2017-01-02 11:41 | CPEKG ---
Heart Rate: 91 RR Interval: 659 QRSD Interval: 158 QT Interval: 456 QTC Interval: 562 QRS [place]: 17 T Wave [place]: 219 EKG Severity - ABNORMAL ECG - EKG Impression: SINUS RHYTHM WITH FREQUENT PVCS EKG Impression: PAIRED VENTRICULAR PREMATURE COMPLEXES EKG Impression: IVCD, CONSIDER ATYPICAL LBBB Electronically Signed By: Sigifredo Mccauley 03-Jan-2017 12:34:24
[2017-01-02 12:08] LABS: % IMMATURE GRANULYOCYTES 0.2 % (0.0-1.1); ABSOLUTE IMMATURE GRANULOCYTES 0.01 10^3/uL (0.00-0.10); ADD DIFF? NO; ADD MORPH? NO; ADD SCAN? NO; ATYPICAL LYMPHOCYTE FLAG 30 (0-99); FRAGMENT RBC FLAG 0 (0-99); HEMATOCRIT 37.3 % (40.0-51.0); HEMOGLOBIN 12.7 g/dL (13.7-17.5); LEFT SHIFT FLG 0 (0-99); LIPEMIA HEMOLYSIS FLAG 90 (0-99); MEAN CELL HEMOGLOBIN 33.6 pg (27.9-34.1); MEAN CELL VOLUME 98.7 fL (81.5-99.8); MEAN PLATELET VOLUME 12.6 fL (8.7-11.7); PLATELET CLUMPS FLAG 40 (0-99); PLATELET COUNT 113 10^3/uL (150-400); RED BLOOD CELL COUNT 3.78 10^6/uL (4.40-6.38); RED CELL DISTRIBUTION WIDTH 15.3 % (11.5-15.2)
[2017-01-02 12:25] LABS: ANION GAP 10 mEq/L (8-16); CALCIUM 9.3 mg/dL (8.5-10.4); CARBON DIOXIDE 24 mEq/l (22-31); CHLORIDE 105 mEq/L (97-110); CREATININE 1.3 mg/dL (0.7-1.3); GLOMERULAR FILTRATION RATE 53; GLUCOSE 79 mg/dL (70-100); POTASSIUM 4.9 mEq/L (3.5-5.2); SODIUM 139 mEq/L (134-144)
[2017-01-02 12:29] LABS: INR 0.96 (0.83-1.16); PROTIME(PATIENT) 12.7 SEC (12.0-15.0)
[2017-01-02] MEDS ORDERED: PROPOFOL/EMULSION 500 MG/50 ML BOTTLE IV ONE ×2 (15:33→17:01)
[2017-01-02] MEDS ORDERED: fentaNYL 100 MCG/2 ML INJ ONE ×2 (15:33→17:30)
[2017-01-02] MEDS ORDERED: MIDAZOLAM 2 MG/2 ML VIAL ONE (15:35)
[2017-01-02] MEDS ORDERED: IOPAMIDOL (ISOVUE-300) 100 ML BTL ONE (15:54)
[2017-01-02] MEDS ORDERED: LIDOCAINE 1% 300 MG/30 ML SDV ONE (16:03)
[2017-01-02] MEDS ORDERED: LIDO/EPI 1% **for epidural** 30 ML SDV ONE (16:03)
[2017-01-02] MEDS ORDERED: BUPIVACAINE 0.5% 30 ML SDV ONE (16:04)
[2017-01-02] MEDS ORDERED: AMIODARONE HCL 150 MG/3 ML VIAL ONE (16:43)
[2017-01-02] MEDS ORDERED: ALBUTEROL 60 PUFFS/8 GM MDI IH PRN (18:18)
[2017-01-02] MEDS ORDERED: TORSEMIDE 20 MG TAB PO PRN (18:18)
[2017-01-02] MEDS ORDERED: ONDANSETRON 4 MG/2 ML VIAL ONE (18:26)
[2017-01-02] MEDS ORDERED: epHEDrine SULFATE 10 MG/ML SYR ONE (18:32)
[2017-01-02] MEDS ORDERED: FUROSEMIDE 20 MG/2 ML VIAL ONE (19:00)
[2017-01-02] MEDS ORDERED: FUROSEMIDE 20 MG/2 ML VIAL IVP ONE (19:00)
--- NOTE | 2017-01-02 19:02 | CPEKG ---
Heart Rate: 92 RR Interval: 652 P-R Interval: 152 QRSD Interval: 120 QT Interval: 444 QTC Interval: 550 P [place]: 0 QRS [place]: 256 T Wave [place]: 77 EKG Severity - ABNORMAL ECG - EKG Impression: A-V DUAL-PACED COMPLEXES W/ SOME INHIBITION EKG Impression: PACING IS NEW IN COMPARISON TO PRIOR ECGS Electronically Signed By: Sigifredo Mccauley 03-Jan-2017 12:34:47
[2017-01-02] MEDS ORDERED: PRAVASTATIN SODIUM 20 MG TAB PO SCH (21:00)
[2017-01-02] MEDS ORDERED: MULTIVITAMINS 1 EACH TAB PO SCH (21:00)
[2017-01-02] MEDS: AMIODARONE HCL 200 MG TAB PO SCH (22:10)
[2017-01-02] MEDS: APIXABAN 2.5 MG TAB PO SCH (22:33)
[2017-01-02] MEDS: SACUBITRIL/VALSARTAN 49/51MG 1 EA TAB PO SCH (22:34)
[2017-01-02] MEDS: CARVEDILOL 6.25 MG TAB PO SCH (22:34)
[2017-01-02 23:03] VITALS: O2SAT 95
[2017-01-03 04:55] LABS: % IMMATURE GRANULYOCYTES 0.2 % (0.0-1.1); ABSOLUTE IMMATURE GRANULOCYTES 0.01 10^3/uL (0.00-0.10); ADD DIFF? NO; ADD MORPH? NO; ADD SCAN? NO; ATYPICAL LYMPHOCYTE FLAG 10 (0-99); FRAGMENT RBC FLAG 0 (0-99); HEMATOCRIT 35.3 % (40.0-51.0); HEMOGLOBIN 11.7 g/dL (13.7-17.5); LEFT SHIFT FLG 0 (0-99); LIPEMIA HEMOLYSIS FLAG 80 (0-99); MEAN CELL HEMOGLOBIN 33.1 pg (27.9-34.1); MEAN CELL HEMOGLOBIN CONCENTR. 33.1 g/dL (32.4-36.7); MEAN CELL VOLUME 99.7 fL (81.5-99.8); MEAN PLATELET VOLUME 12.9 fL (8.7-11.7); PLATELET CLUMPS FLAG 0 (0-99); PLATELET COUNT 97 10^3/uL (150-400); RED BLOOD CELL COUNT 3.54 10^6/uL (4.40-6.38); RED CELL DISTRIBUTION WIDTH 15.1 % (11.5-15.2)
[2017-01-03 06:15] LABS: ANION GAP 7 mEq/L (8-16); CALCIUM 8.7 mg/dL (8.5-10.4); CARBON DIOXIDE 25 mEq/l (22-31); CHLORIDE 108 mEq/L (97-110); CREATININE 1.3 mg/dL (0.7-1.3); GLOMERULAR FILTRATION RATE 53; GLUCOSE 101 mg/dL (70-100); POTASSIUM 4.9 mEq/L (3.5-5.2); SODIUM 140 mEq/L (134-144)
--- NOTE | 2017-01-03 07:55 | EPPROC ---
Electrophysiology Procedure Note: PROCEDURE PERFORMED: 1. Implantation of an A-BiV Implantable Cardioverter Defibrillator 2. Subclavian vein angiography 3. 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 In view of this it was decided to implant BiV ICD. PROCEDURE NOTE: Patient presented to the cardiac catheterization laboratory in a fasting, post absorptive state. General anesthesia was administered by anesthesiology staff. The left infraclavicular area was prepped and draped in the usual sterile fashion. Lidocaine plus bupivacaine was used for local anesthesia. Left subclavian venography was performed by injection of iodinated contrast into the left antecubital vein. This was done to assure patency of the vein and also to assess for any anatomical aberrations. Using a combination of blunt and sharp dissection and electrocautery, the dissection was carried down to the prepectoral fascia. All bleeding was controlled with electrocautery. Fluoroscopy was utilized during the entire procedure for venous access and placement of the leads Using a direct stick technique the left extra thoracic axillary vein was accessed with 1 sticks using the modified Seldinger technique. Placement of the guide wires into the venous system was confirmed by low pressure blood return and also by visualizing the guide wires advancing into the inferior vena cava. A purse string suture was applied around the guide wires. One 9 Colombian sheath was advanced under fluoroscopic guidance over the guide wires. An active fixation ventricular ICD lead was advanced into the right ventricular apex and screwed in place.. The peel away sheaths were removed. Pacing thresholds, sensing parameters and lead impedances were measured. There was no diaphragmatic stimulation at maximum output. A 9 [place] sheath was advanced over the guide wire into the subclavian vein. Using the ST Aayush CS sheath system the coronary sinus ostium was engaged. However, poor back support was noted. Decapolar and CRD2 EP catheters were used for support with little success. Hence once again attempt was made with ST Aayush sheath by itself and this time we were able to position the sheath in the CS. Occlusion retrograde coronary sinus angiography was performed in three views. A coronary sinus quadripolar polar lead was advanced into the coronary sinus. An angioplasty wire was advanced through the lead and advanced into the mid portion of the posterolateral branch of the coronary sinus. The lead was advanced over the angioplasty wire. Pacing threshold, sensing and impedance was determined. There was no diaphragmatic stimulation at maximum output. The delivery system was peeled away with some loss of position. With Mailman wire we were able to reposition it again. Using the prexisting glide wire, a 7F sheath was placed and an active fixation atrial lead was advanced into the right atrial appendage and screwed in place Again, pacing threshold, sensing and impedance was determined. There was no diaphragmatic stimulation at maximum output. The CS lead was secured to the prepectoral fascia with 3 nonabsorbable sutures. Pacing threshold and sensing parameters of the RA, RV and LV leads were checked again. Subcutaneous pocket was created and it was flushed with antibiotic solution. The pocket was again inspected for any bleeding. The leads were attached to the pacemaker securely. The ICD was inserted into the pocket and secured in place with a nonabsorbable suture. Fluoroscopy was performed in GALLAGHER and GREENLANDIC planes to verify right sided placement of the leads. Also fluoroscopy of the pacemaker pocket was performed. Defibrillation threshold testing was performed. The ICD pocket was closed in 3 layers with absorbable monocryl sutures. Appropriate dressing was applied. The patient left the cardiac catheterization laboratory in stable condition. Serial Numbers: 1. Device St Aayush Quadra Assura SN [id number] 2. Atrial Lead [facility] Aayush Tendril 2088TC SN [id number] 3. Right Ventricular Lead ST Aayush Durata SN [id number] 4. Left Ventricular Lead St Aayush Quartet SN [id number] Stimulation Thresholds & Impedance Measurements: 1. Atrial Lead 2mV, 0.8@0.5ms, 408Ohms 2. Right Ventricular Lead 16.6mV, 0.8@0.5ms, 416Ohms 3. Left Ventricular Lead 14.6mV, 0.7@0.5ms, 561Ohms Mohinder Pacing Parameters: 1. Pacing mode DDD 2. Lower rate 60 3. Upper rate 120 Tachycardia therapy parameters: VF zone : Detection 214 bpm First therapy 40 Joule Subsequent therapies 40 Joule VT zone : Detection 183 bpm First therapy burst pacing at 84 %tachycardia CL, 8 beats, 2 sequences Second therapy 40 Joule Subsequent therapies 40 Joule Patient Problems: Problems Problem Status Onset Chronic Disease Mgmt/Transitional Care Acute Congestive heart failure Acute Pneumonia Acute Severe sepsis Acute
[2017-01-03 08:02] VITALS: BP 107/71; PULSE 75; RESP 14; TEMP 97.8
[2017-01-03] MEDS: APIXABAN 2.5 MG TAB PO SCH (08:28)
[2017-01-03] MEDS: AMIODARONE HCL 200 MG TAB PO SCH (08:28)
[2017-01-03] MEDS: CARVEDILOL 6.25 MG TAB PO SCH (08:28)
[2017-01-03] MEDS: SACUBITRIL/VALSARTAN 49/51MG 1 EA TAB PO SCH (08:59)
[2017-01-03] MEDS ORDERED: Herbals/Supplements -Info Only PO SCH (09:00)
[2017-01-03] MEDS ORDERED: CHOLECALCIFEROL VIT D3 1,000 UNITS TAB PO SCH (09:00)
--- NOTE | 2017-01-03 09:04 | CPEKG ---
Heart Rate: 118 RR Interval: 508 P-R Interval: 124 QRSD Interval: 138 QT Interval: 388 QTC Interval: 544 P [place]: 250 QRS [place]: -41 T Wave [place]: 155 EKG Severity - ABNORMAL ECG - EKG Impression: A-V DUAL-PACED COMPLEXES W/ SOME INHIBITION Electronically Signed By: Sigifredo Mccauley 03-Jan-2017 12:35:01
--- NOTE | 2017-01-03 16:04 | GDS ---
[f rep st] DISCHARGE SUMMARY ADMISSION DIAGNOSES: 1. Coronary artery disease. 2. Paroxysmal atrial fibrillation. 3. 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 4. Moderate mitral regurgitation. 5. Chronic renal insufficiency. DISCHARGE DIAGNOSES: 1. Coronary artery disease. 2. Paroxysmal atrial fibrillation. 3. Chronic systolic ischemic heart failure with known ejection fraction of 27%. 4. Moderate mitral regurgitation. 5. Chronic renal insufficiency. 6. Status post biventricular automatic implantable cardiac defibrillator implantation, [facility]. Aayush. PROCEDURES DONE DURING HOSPITALIZATION: 1. Electrocardiogram. 2. Placement of a biventricular AICD with right atrial lead, right ventricular lead, and left coron mesha sinus lead, all [facility]. Aayush. 3. Chest x-ray. BRIEF HISTORY: The patient is an 81-year-old male with known history of CAD, paroxysmal atrial fibr illation, chronic ischemic systolic heart failure with known ejection fraction of 27%, moderate MR, and chronic renal insufficiency. He has been noted to have atrial fibrillation, which causes signif icant shortness of breath, especially. He is also been noted to have lower heart rates. Patient al so at risk for sudden cardiac with low ejection fraction and known history of CAD. Patient wa s evaluated by Dr. Mae and found to be an appropriate candidate for Bi-V AICD implantation. HOSPITAL COURSE: Patient admitted through the CVC, prepped for procedure, and taken to the electrop hysiology lab, where Dr. Mae successfully implanted an AICD biventricular, with atrial, RV, and cor onary sinus CLV leads. No complications. Patient was transferred back to the CVC, and ultimately t o the PCU for overnight observation. He has been noted to be in sinus rhythm with frequent prematur e ventricular contractions throughout the evening. Dr. Mae did initiate amiodarone oral dosing nury saucedo. Patient reports no chest pain or pressure. He has been up and walking the floor without any symptoms of lightheadedness or palpitations. He has had no therapeutic shocks from the defibrillato r overnight. PHYSICAL EXAMINATION: (Done today) GENERAL APPEARANCE: Thin elderly male. He is alert a nd oriented to person, place, time, and situation and appears to be under no acute distress. VITAL SIGNS: Current blood pressure 107/71, heart rate of 75, respirations 14, saturating 95% on 3 L nasa l cannula at night and 92% on room air, temperature 36.6 degrees Celsius. HEENT: Head is normoceph alic. Lips and tongue pink and moist with no signs of cyanosis. Conjunctivae pink. NECK: Trachea is midline. +2 carotid pulses bilateral; no auscultated bruits. 4-5 cm of jugular vein elevation at 45-degree angle above the sternal notch. RESPIRATORY: Lungs clear to auscultation. No rhonchi, rales, or wheezes. No accessory muscle use. No intercostal muscle retraction noted. CARDIAC: Re gular rate, regular rhythm. S1, S2. A 1 over 6 systolic murmur noted along the left sternal border . ABDOMEN: Soft, nontender. Bowel sounds x4 quadrants. No organomegaly. No palpable masses. SK IN: [place], warm, dry. No cyanosis. No clubbing. No peripheral edema. VASCULAR: +2 carotids bila teral. +2 radials bilateral. +1 posterior tibial pulses bilateral. SKIN: AICD implantation site, left anterior chest, incision intact with Steri-Strips. No redness, swelling, drainage, ecchymosis, or hematoma. Dressing change done at this time. LABORATORY: Studies drawn today show WBC of 5.83, hemoglobin 11.7, hematocrit 35.3, platelet count 97. Sodium 140, potassium 4.9, chloride 108, CO2 25, BUN 31, creatinine 1.3, glucose 101, calcium 8 .7. DIAGNOSTICS: AICD implantation, as mentioned above. This morning's chest x-ray showed cardiomegaly with no overt failure; noted bilateral pleural effusions, no pneumothorax post pacemaker implantati on. Electrocardiogram shows AV-paced with premature ventricular contractions. DISCHARGE DISPOSITION: Patient will be discharged home in fair condition. He is under activity res trictions of no strenuous activity for the next week and to not lift left arm higher than shoulder h eight for the next 6 weeks. DISCHARGE MEDICATIONS: Please see discharge medication reconciliation sheet. Note, besides his reg ular home medications, he has been started on amiodarone of which he will be taking 400 mg 3 times a day for the next week, then decreasing it to 400 mg twice daily for the following 2 weeks, and then transition to 400 mg once daily. DISCHARGE INSTRUCTIONS: Post Bi-V AICD implantation gone over with the patient including monitoring for signs of infection, activity restrictions, medication compliance, and followup. [facility] office visit for device and wound check to be done next week. He has a followup appointment wit michele Mae in 2 weeks' time. At the time of discharge, patient verbalized understanding of all disc harge instructions and had no questions or concerns. He has been told that if any problems, he is t o notify our office or return to the hospital. TOTAL TIME SPENT ON DISCHARGE: Greater than 30 minutes. /[id number]/MODL
== END 2017-01-03 12:00 | disposition home or self-care (01) ==
LOC: FCATH 11:12 → F2W 18:17
PROVIDERS: ADMIT Internal Medicine Cardiovascular Disease; ATTEND Internal Medicine Cardiovascular Disease
PROC: 02H43KZ Insertion of Defibrillator Lead into Coronary Vein, Percutaneous Approach (ICD-10-PCS; principal; 2017-01-02)
PROC: 02HK3KZ Insertion of Defibrillator Lead into Right Ventricle, Percutaneous Approach (ICD-10-PCS; principal; 2017-01-02)
PROC: 02H63KZ Insertion of Defibrillator Lead into Right Atrium, Percutaneous Approach (ICD-10-PCS; principal; 2017-01-02)
PROC: 0JH609Z Insertion of Cardiac Resynchronization Defibrillator Pulse Generator into Chest Subcutaneous Tissue and Fascia, Open Approach (ICD-10-PCS; principal; 2017-01-02)
DX: I50.22 Chronic systolic (congestive) heart failure (principal); I48.0 Paroxysmal atrial fibrillation; I25.10 Atherosclerotic heart disease of native coronary artery without angina pectoris; I34.0 Nonrheumatic mitral (valve) insufficiency; N18.9 Chronic kidney disease, unspecified
CPT/HCPCS: 33249; 71010; 71020; 93005; C1730; C1769; C1882; C1895; C1898; C1900; J0282; J0690; J1940; J2250; J2405; J2704; J3010; Q9967

== ENCOUNTER → 2017-02-08 | Outpatient (CLI) | payer OTHER, MEDICARE | LOC: BHFA 15:30 | PROVIDERS: ATTEND Internal Medicine Cardiovascular Disease | DX: I48.91 Unspecified atrial fibrillation (principal); Z95.810 Presence of automatic (implantable) cardiac defibrillator ==

== ENCOUNTER → 2017-03-12 | Outpatient (CLI) | payer OTHER, MEDICARE | LOC: BHLMT 10:45 | PROVIDERS: ATTEND Internal Medicine Interventional Cardiology | DX: I50.9 Heart failure, unspecified (principal); I25.10 Atherosclerotic heart disease of native coronary artery without angina pectoris; I48.91 Unspecified atrial fibrillation | CPT/HCPCS: 93306-PO ==

== ENCOUNTER → 2017-03-14 | Outpatient (CLI) | payer OTHER, MEDICARE | LOC: BHFA 14:00 | PROVIDERS: ATTEND Internal Medicine Cardiovascular Disease | DX: I50.22 Chronic systolic (congestive) heart failure (principal); I25.119 Atherosclerotic heart disease of native coronary artery with unspecified angina pectoris; R06.02 Shortness of breath; R60.9 Edema, unspecified ==

== ENCOUNTER → 2017-08-12 | Outpatient (CLI) | payer OTHER, MEDICARE ==
[~2017-08-12] MED LIST changes: -BENZOCAINE UNIT DOSE SPRAY HURRICAINE MM ONE; +IOPAMIDOL (ISOVUE 370) 100 ML BTL IV ONE; +LIDOCAINE 1% 2 ML INJ ONE; +LIDOCAINE 1% 300 MG/30 ML SDV ONE; -LIDOCAINE 2% 100 MG/5 ML SYR ONE; -MIDAZOLAM 2 MG/2 ML VIAL IVP ONE; -NS 500 ML IV ONE; -PHENYLEPHRINE HCL 100 MCG/ML SYR ONE; -PROPOFOL 200 MG/20 ML VIAL IVP ONE; -PROPOFOL 200 MG/20 ML VIAL ONE; -SUCCINYLCHOLINE CHLORIDE*ANESTHESIA ONLY*200 MG/10 ML SYR IVP ONE; -fentaNYL 100 MCG/2 ML INJ IVP ONE
== END ==
LOC: FIMAGING 10:17
PROVIDERS: ATTEND Orthopaedic Surgery
PROC: 3E0U3KZ Introduction of Other Diagnostic Substance into Joints, Percutaneous Approach (ICD-10-PCS; principal; 2017-08-12)
DX: M75.111 Incomplete rotator cuff tear or rupture of right shoulder, not specified as traumatic (principal); M75.81 Other shoulder lesions, right shoulder; M19.011 Primary osteoarthritis, right shoulder; Z95.0 Presence of cardiac pacemaker
CPT/HCPCS: 23350; 73040; 73201; Q9967

== ENCOUNTER 2017-12-26 11:20 | Day surgery (SDC) | payer OTHER, MEDICARE ==
[2017-12-26] MEDS ORDERED: NS 500 ML IV ONE (11:23)
[2017-12-26] MEDS ORDERED: fentaNYL 100 MCG/2 ML INJ IVP ONE (11:23)
[2017-12-26] MEDS ORDERED: ATROPINE SULFATE 1 MG/10 ML SYR IVP ONE (11:23)
[2017-12-26] MEDS ORDERED: MIDAZOLAM 2 MG/2 ML VIAL IVP ONE (11:23)
--- NOTE | 2017-12-26 11:52 | CPEKG ---
Heart Rate: 93 RR Interval: 645 QRSD Interval: 168 QT Interval: 440 QTC Interval: 548 QRS [place]: 14 T Wave [place]: 184 EKG Severity - ABNORMAL ECG - EKG Impression: AFIB/FLUT AND V-PACED COMPLEXES EKG Impression: LEFT BUNDLE BRANCH BLOCK Electronically Signed By: Kunal Rodriguez 26-Dec-2017 15:28:53
[2017-12-26 12:00] LABS: INR 1.27 (0.83-1.16); PROTIME(PATIENT) 16.1 SEC (12.0-15.0)
[2017-12-26] MEDS ORDERED: PROPOFOL 200 MG/20 ML VIAL ONE (12:18)
--- NOTE | 2017-12-26 12:18 | PDHPUP ---
History & Physical Update H&P update statement: This history and physical update is based on an assessment of the patient which was completed after admission or registration (within 24 hours), but prior to the surgery/procedure. H&P update: H&P reviewed & patient examined, no change in patient's condition since H&P completed
--- NOTE | 2017-12-26 12:26 | PDANEPAE ---
ANE History of Present Illness CV ANE Past Medical History - Cardiovascular History Hx Hypertension: Yes Hx Arrhythmias: Yes Hx Coronary Artery / Peripheral Vascular Disease: Yes Hx CHF / Valvular Disease: Yes - Pulmonary History Hx COPD: Yes Hx Asthma/Reactive Airway Disease: No Hx Oxygen in Use at Home: No Hx Sleep Apnea: Yes - Endocrine History Hx Diabetes: No Hypothyroid: No Hyperthyroid: No - Chronic Pain History Chronic Pain: No ANE Review of Systems Review of Systems: - Exercise capacity METS (RN): 2 METS ANE Patient History - Allergies Allergies/Adverse Reactions: No Allergies [NKDA] Allergy (Verified 10/22/16 14:14) - Home Medications Home Medications: Pravastatin Sodium 20 mg PO HS 03/24/13 [Last Taken 01/01/17] Apixaban [Eliquis] 2.5 mg PO BID 12/12/16 [Last Taken 12/31/16 09:00] Carvedilol [Coreg (*)] 6.25 mg PO BID 12/12/16 [Last Taken 01/01/17 21:00] Sacubitril/Valsartan 49/51Mg [Entresto 49 mg/51 mg (RX)] 1 ea PO BID 12/12/16 [ Last Taken 01/01/17 21:00] Albuterol [Proventil Inhaler HFA (*)] 1 - 2 puffs IH DAILY PRN 01/02/17 [Last Taken Unknown] Cholecalciferol Vit D3 [Vitamin D3 (*)] 1,000 units PO DAILY 01/02/17 [Last Taken 01/01/17] Herbals/Supplements -Info Only 1 ea PO DAILY 01/02/17 [Last Taken Unknown] Multivitamins [Multivitamin (*)] 1 each PO HS 01/02/17 [Last Taken 01/01/17] Torsemide [Demadex] 20 mg PO Q3D 01/02/17 [Last Taken 01/01/17] rOPINIRole HCL [Requip 1mg (*)] 0.5 mg PO HS 12/23/17 [Last Taken Unknown] - Smoking Hx Smoking Status: Former smoker ANE Labs/Vital Signs - Labs Result Diagrams: 12/26/17 11:43 - Vital Signs Height: 183 cm Weight: 79.8 kg ANE Physical Exam - Airway Neck exam: decreased ROM Mallampati Score: Class 2 - Pulmonary Pulmonary: no respiratory distress - Cardiovascular Cardiovascular: irregularly irregular - ASA Status ASA Status: III ANE Anesthesia Plan Anesthesia Plan: GA with mask Total IV Anesthesia: Yes
[2017-12-26] MEDS ORDERED: NALOXONE HCL 0.4 MG/ML INJ IVP PRN (12:43)
--- NOTE | 2017-12-26 12:43 | POSTANESTH ---
Post Anesthetic Evaluation Cardiovascular Status: Similar to Pre-Op Cond Respiratory Status: Normal, Stable Level of Consciousness/Mental Status: Can Participate in Eval Pain Control: Adequate, Prn Tx Ordered Nausea/Vomiting Control: Adequate, Prn Tx Ordered Complications Possibly Related to Anesthesia: None Noted
--- NOTE | 2017-12-26 12:49 | PDANEPAE ---
ANE History of Present Illness CV ANE Past Medical History - Cardiovascular History Hx Hypertension: Yes Hx Arrhythmias: Yes Hx CHF / Valvular Disease: Yes - Pulmonary History Hx COPD: Yes Hx Asthma/Reactive Airway Disease: No Hx Recent Upper Respiratory Infection: No Hx Oxygen in Use at Home: No Hx Sleep Apnea: Yes - Endocrine History Hx Diabetes: No Hypothyroid: No Hyperthyroid: No Obesity: no - Chronic Pain History Chronic Pain: No ANE Review of Systems Review of Systems: - Exercise capacity METS (RN): 2 METS ANE Patient History - Allergies Allergies/Adverse Reactions: No Allergies [NKDA] Allergy (Verified 10/22/16 14:14) - Home Medications Home Medications: Pravastatin Sodium 20 mg PO HS 03/24/13 [Last Taken 01/01/17] Apixaban [Eliquis] 2.5 mg PO BID 12/12/16 [Last Taken 12/31/16 09:00] Carvedilol [Coreg (*)] 6.25 mg PO BID 12/12/16 [Last Taken 01/01/17 21:00] Sacubitril/Valsartan 49/51Mg [Entresto 49 mg/51 mg (RX)] 1 ea PO BID 12/12/16 [ Last Taken 01/01/17 21:00] Albuterol [Proventil Inhaler HFA (*)] 1 - 2 puffs IH DAILY PRN 01/02/17 [Last Taken Unknown] Cholecalciferol Vit D3 [Vitamin D3 (*)] 1,000 units PO DAILY 01/02/17 [Last Taken 01/01/17] Herbals/Supplements -Info Only 1 ea PO DAILY 01/02/17 [Last Taken Unknown] Multivitamins [Multivitamin (*)] 1 each PO HS 01/02/17 [Last Taken 01/01/17] Torsemide [Demadex] 20 mg PO Q3D 01/02/17 [Last Taken 01/01/17] rOPINIRole HCL [Requip 1mg (*)] 0.5 mg PO HS 12/23/17 [Last Taken Unknown] - Smoking Hx Smoking Status: Former smoker ANE Labs/Vital Signs - Labs Result Diagrams: 12/26/17 11:43 - Vital Signs Height: 183 cm Weight: 79.8 kg ANE Physical Exam - Airway Neck exam: decreased ROM Mallampati Score: Class 2 Mouth exam: poor dentition - Pulmonary Pulmonary: no respiratory distress - Cardiovascular Cardiovascular: irregularly irregular - ASA Status ASA Status: III ANE Anesthesia Plan Anesthesia Plan: GA with mask Total IV Anesthesia: Yes
--- NOTE | 2017-12-26 13:17 | EPPROC ---
Electrophysiology Procedure Note: Procedure: CV Indication: AF Procedure: Pt sedated by anesthesia staff. Once sedated, 200J of synchronized DCCV given. pt successfully converted to SR Conclusion: Successful CV Patient Problems: Problems Problem Status Onset Chronic Disease Mgmt/Transitional Care Acute Congestive heart failure Acute Pneumonia Acute Severe sepsis Acute
== END 2017-12-26 14:04 | disposition home or self-care (01) ==
LOC: FCATH 11:20
PROVIDERS: ATTEND Internal Medicine Cardiovascular Disease
PROC: 5A2204Z Restoration of Cardiac Rhythm, Single (ICD-10-PCS; principal; 2017-12-26)
DX: I48.91 Unspecified atrial fibrillation (principal); I25.10 Atherosclerotic heart disease of native coronary artery without angina pectoris; I50.22 Chronic systolic (congestive) heart failure; N18.9 Chronic kidney disease, unspecified
CPT/HCPCS: J0461; J2704

== ENCOUNTER 2018-04-22 03:01 | Inpatient (IN) | payer OTHER, MEDICARE ==
--- NOTE | 2018-04-22 03:05 | EDPHY ---
H & P Time Seen by Provider: 04/22/18 03:05 HPI/ROS: HPI CHIEF COMPLAINT: Shortness of breath worsening over the last 24 hr. HISTORY OF PRESENT ILLNESS: A 83-year-old male, history of coronary disease, proximal AFib, congestive heart failure with the EF 27%, mitral regurg, presents emergency room with 24 hr of grossly worsening shortness of breath. Patient states he was recently ill with a cold. Was trying to get over this, he has been traveling with poor sleep, he thinks that he may be in congestive heart failure is over the past 24 hr he has had worsening shortness of breath unable to lay flat, dyspnea on exertion, and a cough with clear sputum. He denies any chills or fever. Denies chest pain. Past Medical History: Patient has a history of proximal AFib, congestive heart failure, coronary disease Past Surgical History: No recent surgery, left chest pacemaker Social History: Denies drugs alcohol tobacco. Family History: Noncontributory ROS REVIEW OF SYSTEMS: 10 Systems were reviewed and negative with the exception of the elements mentioned in the history of present illness. Exam Constitutional triage nursing summary reviewed, vital signs reviewed, awake/ alert. Eyes normal conjunctivae and sclera, EOMI, PERRLA. HENT normal inspection, atraumatic, moist mucus membranes, no epistaxis, neck supple/ no meningismus, no raccoon eyes. Respiratory rhonchi throughout all lung hughes, worse on the right lung than left, Cardiovascular irregular, irregular rhythm, tachycardic no murmur, no edema, distal pulses normal. Gastrointestinal soft, non-tender, no rebound, no guarding, normal bowel sounds, no distension, no pulsatile mass. Genitourinary no CVA tenderness. Musculoskeletal bilateral pitting edema in lower extremities 2+, no midline vertebral tenderness, full range of motion, no calf swelling, no tenderness of extremities, no meningismus, good pulses, neurovascularly intact. Skin pink, warm, & dry, no rash, skin atraumatic. Neurologic awake, alert and oriented x 3, AAOx3, moves all 4 extremities equally, motor intact, sensory intact, CN II-XII intact, normal cerebellar, normal vision, normal speech. Psychiatric normal mood/affect. Heme/Lymph/Immune no lymphadenopathy. Differential diagnosis includes but is not limited to: Decompensated heart failure, pneumonia, bronchitis ACS, atypical chest pain, pneumothorax, pneumonia , pulmonary embolism, aortic dissection, congestive heart failure, tumor, musculoskeletal pain, esophageal pain, GERD, peptic ulcer disease, pancreatitis Medical Decision Making: Plan for this patient IV establishment blood draw, blood cultures, lactic acid, chest x-ray, EKG, BNP. Evaluate for dyspnea. Possible CHF versus possible pneumonia. Re-evaluation: EKG interpretation by me on record in [employer] system. Impression time of EKG 3:16 a.m., AFib rate of 111. PVCs present. Do not appreciate any ST elevation. BNP elevated 19,000. Much higher than patient's normal levels. Patient has a chest x-ray that shows cardiomegaly and pulmonary edema bilaterally. No focal pneumonia. Patient's dyspnea on exertion, PND, wet sounding breath sounds, peripheral edema is consistent with congestive heart failure. Here in emergency room the patient be given IV Lasix 40 mg. Patient be admitted to the hospitalist service for decompensated heart failure. Source: Patient - Medical/Surgical History Hx Asthma: No Hx Chronic Respiratory Disease: Yes Hx Diabetes: No Hx Cardiac Disease: Yes Hx Renal Disease: No Hx Cirrhosis: No Hx Alcoholism: Yes Hx HIV/AIDS: No Hx Splenectomy or Spleen Trauma: No Other PMH: heart failure,afib,cardioversion, copd, cirrosis, BPH, TURP, CAD. stents, - Social History Smoking Status: Former smoker Constitutional: Initial Vital Signs O2 Sat (%) 97 04/22/18 03:05 O2 Delivery Mode Nasal Cannula O2 (L/minute) 2 Allergies/Adverse Reactions: No Allergies [NKDA] Allergy (Verified 10/22/16 14:14) Home Medications: Medication Instructions Recorded Pravastatin Sodium 20 mg PO HS 03/24/13 Apixaban [Eliquis] 2.5 mg PO BID 12/12/16 Albuterol [Proventil Inhaler HFA 1 - 2 puffs IH DAILY PRN 01/02/17 (*)] Cholecalciferol Vit D3 [Vitamin D3 1,000 units PO DAILY 01/02/17 (*)] Multivitamins [Multivitamin (*)] 1 each PO HS 01/02/17 Torsemide [Demadex] 20 mg PO Q3D 01/02/17 rOPINIRole HCL [Requip 1mg (*)] 1 mg PO HS PRN 12/23/17 C/E/Zn/Cu/OM3/DHA/EPA/LUT/ZEAX 1 each PO DAILY 04/22/18 [Preservision Areds 2 Softgel] Carvedilol [Coreg (*)] 25 mg PO BIDMEAL #30 tab 04/26/18 Medical Decision Making - Data Points Laboratory Results: Laboratory Results 04/22/18 03:18 04/22/18 03:18 Medications Given: Discontinued Medications Apixaban (Eliquis) 2.5 mg PO BID OSBALDO Stop: 10/19/18 13:44 Last Admin: 04/26/18 09:42 Dose: 2.5 mg Atropine Sulfate (Atropine 1 Mg/10 Ml Syringe) 1 mg IVP ONCALL ONE Stop: 04/24/18 06:01 Last Admin: 04/24/18 13:18 Dose: Not Given Carvedilol (Coreg) 12.5 mg PO BIDMEAL OSBALDO Stop: 10/19/18 17:59 Last Admin: 04/23/18 09:07 Dose: Not Given Carvedilol (Coreg) 25 mg PO BIDMEAL OSBALDO Stop: 10/20/18 08:29 Last Admin: 04/26/18 09:42 Dose: 25 mg Cholecalciferol (Vitamin D) 1,000 units PO DAILY OSBALDO Stop: 10/20/18 08:59 Last Admin: 04/26/18 09:41 Dose: 1,000 units Furosemide (Lasix Injection) 40 mg IVP EDNOW ONE Stop: 04/22/18 04:06 Last Admin: 04/22/18 04:20 Dose: 40 mg Furosemide (Lasix Injection) 40 mg IVP BID@0900,1500 [facility] Stop: 10/19/18 14:59 Last Admin: 04/24/18 13:12 Dose: 40 mg Furosemide (Lasix) 40 mg PO BID@0900,1500 [facility] Stop: 10/21/18 14:59 Last Admin: 04/25/18 09:51 Dose: 40 mg Guaifenesin (Mucinex) 600 mg PO BID OSBALDO Stop: 10/19/18 20:59 Last Admin: 04/26/18 09:42 Dose: 600 mg Magnesium Sulfate/Dextrose (Magnesium Sulf 1 Gm (Premix)) 100 mls @ 100 mls/hr IV ONCE ONE PRN Reason: Protocol Stop: 04/23/18 09:12 Last Admin: 04/23/18 08:48 Dose: 100 mls Sodium Chloride (Ns) 1,000 mls @ 0 mls/hr IV ONCALL ONE PRN Reason: TKO Stop: 04/24/18 06:01 Last Admin: 04/24/18 06:24 Dose: 1,000 mls Sodium Chloride (Ns) 1,000 mls @ 100 mls/hr IV CONT OSBALDO Stop: 04/25/18 15:59 Last Admin: 04/25/18 14:46 Dose: 1,000 mls Influenza Virus Vaccine Quadrival (Flulaval Quad [id number] (6mo+)) 0.5 ml IM .ONCE ONE Stop: 04/23/18 10:04 Last Admin: 04/23/18 11:33 Dose: 0.5 ml Multivitamins (Tab-A-Constanza) 1 each PO HS OSBALDO Stop: 10/19/18 20:59 Last Admin: 04/25/18 21:05 Dose: 1 each Multivitamins/Minerals (Preservision Areds2 Formula) 1 each PO DAILY OSBALDO Stop: 10/20/18 08:59 Last Admin: 04/26/18 09:42 Dose: 1 each Potassium Chloride (Klor-Con) 10 meq PO ONCE ONE Stop: 04/22/18 13:38 Last Admin: 04/22/18 13:55 Dose: 10 meq Potassium Chloride (Klor-Con) 20 meq PO ONCE ONE Stop: 04/23/18 13:29 Last Admin: 04/23/18 14:13 Dose: 20 meq Pravastatin Sodium (Pravachol) 20 mg PO HS OSBALDO Stop: 10/19/18 20:59 Last Admin: 04/25/18 21:04 Dose: 20 mg Sacubitril/Valsartan (Entresto 49 Mg/51 Mg) 1 ea PO BID OSBALDO Stop: 10/19/18 20:59 Last Admin: 04/22/18 19:43 Dose: 1 ea Point of Care Test Results: Chemistry 04/22/18 03:24 POC Troponin I 0.02 ng/mL ng/mL (0.00-0.08) Departure - Departure Disposition: [facility] Acute Clinical Impression: Congestive heart failure Qualifiers: Heart failure type: other Qualified Code(s): I50.9 - Heart failure, unspecified Condition: Fair
[2018-04-22 03:29] LABS: PLATELET COUNT 82 10^3/uL (150-400)
[2018-04-22 03:37] LABS: INR 1.41 (0.83-1.16); PROTIME(PATIENT) 17.4 SEC (12.0-15.0)
[2018-04-22] MEDS ORDERED: FUROSEMIDE 40 MG/4 ML VIAL IVP ONE (04:05)
[2018-04-22] MEDS ORDERED: ONDANSETRON 4 MG/2 ML VIAL IVP PRN (04:17)
[2018-04-22] MEDS ORDERED: ONDANSETRON DISINTEGRATING 4 MG TAB PO PRN (04:17)
[2018-04-22] MEDS ORDERED: ACETAMINOPHEN 325 MG TAB PO PRN (04:17)
--- NOTE | 2018-04-22 07:09 | GHP ---
DATE OF ADMISSION: 04/22/2018 PRIMARY DESIGN DRAFTER: Dr. Rich. SOURCE OF DATA: Patient provides history, appears reliable. EMR was reviewed and case discussed with ED provider. CHIEF COMPLAINT: Shortness of breath, edema, palpitations. HISTORY OF PRESENT ILLNESS: This is a very pleasant 83-year-old gentleman with past medical history significant for paroxysmal atrial fibrillation on Eliquis, systolic CHF with last known EF of 25%, status post biventricular pacer, moderate MR, CAD status post stent to LAD 2006, hyperlipidemia, pulmonary hypertension, hearing deficit, COPD, bundle branch block, BPH, who presents to the emergency department today with complaints of 2-day history of progressive shortness of breath, edema, PND. Patient has also been experiencing palpitations. He recently returned from [place] after visiting his son's family and grandchild. Patient's son is . The patient reports appropriate monitoring of his salt intake and fluid intake. He states that his symptoms actually, he has been experiencing fatigue for the last several weeks and was seen in the cardiology clinic for pre travel visit. He had been reporting some palpitations of concern for his atrial fibrillation, required an increase in his dose of carvedilol. The patient returned from his trip and reports that several days prior, he had developed some upper respiratory type symptoms with rhinorrhea, nasal congestion, and cough, but no sore throat. The patient's coughing has progressively worsened over the last 24 hours, and he reports increased production of clear sputum. He also notes that he can hear his lungs rattling, and this is also keeping him awake and prevented him from sleeping. REVIEW OF SYSTEMS: GENERAL: Negative for fevers, chills. SKIN: No rashes, sores. ENT: Patient does report new onset rhinorrhea, congestion. No current sore throat. EYES: Patient does wear glasses. No acute changes in vision. CARDIOVASCULAR: Positive for orthopnea, PND, edema in the lower extremities. No chest pain. Positive palpitations as per HPI. RESPIRATORY: Positive for productive cough as noted above. Shortness of breath and worsening dyspnea on exertion. GI: Patient without any nausea, vomiting, abdominal pain, diarrhea. : No dysuria or hematuria. MUSCULOSKELETAL: Patient denies any myalgias or joint pain. NEURO: Patient denies any headache, numbness, or tingling. PSYCH: Patient denies anxiety, depression. No SI or HI. Remainder of 10- point review of systems negative except as noted above. ALLERGIES: No known drug allergies. HOME MEDICATIONS: Not yet updated by pharmacy, but per EMR available: Ropinirole 0.5 mg p.o. at h.s., torsemide 20 mg p.o. every 3 days, 49 /51 mg 1 tab p.o. b.i.d., pravastatin 20 mg p.o. at h.s., multivitamin p.o. at h.s., vitamin D3 p.o. daily, Coreg 6.25 mg p.o. b.i.d., Apixaban 2.5 mg p.o. b.i.d., albuterol 1-2 puffs inhaled p.r.n., Ocuvite 1 tab p.o. daily. PAST MEDICAL HISTORY: 1. Significant for systolic CHF, last EF of 25%. 2. Biventricular pacer. 3. Paroxysmal atrial fibrillation on Eliquis, status post multiple cardioversions. 4. Moderate mitral valve regurg. 5. CAD status post stent in LAD with repeat catheterization in 2010, that was clean. 6. BPH status post TURP. 7. COPD. 8. Bundle branch block. 9. Oxygen at h.s. Patient reports negative sleep study. 10. Hyperlipidemia. 11. Pulmonary hypertension. 12. Hearing deficit. The patient wears hearing aids occasionally. PAST SURGICAL HISTORY: 1. Significant for biventricular ICD placement, [facility]. 2. Diskectomy. 3. Cardiac cath with stenting in 2006, and a cath in 2010. 4. EDIL. 5. TURP. 6. Rotator cuff repair. 7. Vasectomy. 8. Tonsillectomy. 9. Adenoidectomy. 10. Mastoidectomy age 2. FAMILY HISTORY: Mother with history of heart disease, but at 92 related to cancer. SOCIAL HISTORY: Patient lives with his of 58 years. They initially had 2 children. One child who lives in the [place] area is , and that is where patient was visiting his grandson and his son's . Another son lives in [place]. The patient denies any tobacco, drugs, or alcohol currently. He does have a history of smoking. Quit in 1982 at age 48, and also had a previous history of heavy alcohol intake, quit several years ago. CODE STATUS: Full. PHYSICAL EXAMINATION: VITAL SIGNS: Upon arrival to the ED blood pressure is 118/88, heart rate is 99, respiratory rate 20, O2 saturation 96% on 2 L by nasal cannula, temperature 36.8. Per ED provider, not listed in the vitals, patient's O2 sat was 88% on room air initially. Currently available signs: Blood pressure 121/94, heart rate 118, respiratory rate 18, O2 saturation is 98 % on 2 L by nasal cannula with a temperature 36.3. GENERAL: No acute distress. Pleasant, frail, elderly appearing gentleman is lying comfortably in bed. HEAD: Normocephalic, atraumatic. EYES: Extraocular muscles are grossly intact. Pupils equal, round with decreased reactivity to light bilaterally, but symmetric. No scleral icterus or conjunctival injection. ENT: Mucous membranes appear moist. No oropharyngeal erythema. Dentition is in fair condition. No nasal discharge. Patient has a nasal cannula in place. NECK: Supple. Trachea midline. CARDIOVASCULAR: Tachycardic with irregularly irregular rhythm in the 100s. Slightly distant heart sounds. Limited exam 2/6 systolic murmur appreciated. No chest wall tenderness to palpation. RESPIRATORY: Patient with coarse rales in the mid to lower lungs bilaterally and some upper airway noises. Intermittent coughing during the interview. No increased work of breathing. ABDOMEN: Positive bowel sounds. Soft, nontender to palpation. No rebound, guarding, or masses appreciated. : No suprapubic tenderness to palpation. No Can catheter in place. MUSCULOSKELETAL: Generalized deconditioning, but overall strength patient is able to sit up and ambulate independently. NEUROLOGIC: Grossly nonfocal. Moves all extremities as noted above. PSYCHIATRIC: Thought process, content, and all questions are appropriate. Patient is awake, alert, and oriented x3. DATA REVIEWED: WBC is 5.11, H and H 11.2 and 33.1, MCV 98.8, platelet count 82, 000. No bands. PT 17.4, INR is 1.41, PTT is 35.6. Sodium is 138, potassium 4.6, chloride is 106, CO2 is 25, anion gap 7, BUN is 37, creatinine is 1.5, GFR 44, glucose 99, calcium 9.3, magnesium 2.1, total bilirubin 0.8, conjugated bilirubin 0.1, ALT is 45, AST is 25, initial troponin 0.02. BTNP [id number]. Total protein 6.1, albumin 3.5. Blood cultures x2 are pending. Chest x-ray: Image was reviewed myself. Report is still pending. The patient with a pacemaker in place. There is some patchiness to bilateral lower lungs without evidence of effusion. Hyperexpansion of the lungs bilaterally. Cardiomegaly. Degenerative disk changes. EKG was reviewed by myself showing atrial fibrillation, PVC, 1 bundle branch block. QTc 566. ASSESSMENT AND PLAN: This is a pleasant 83-year-old gentleman with a history of congestive heart failure, coronary artery disease, chronic obstructive pulmonary disease, who presents to the Emergency Department with complaints of palpitations, orthopnea, lower extremity edema, and paroxysmal nocturnal dyspnea. 1. Acute on chronic systolic congestive heart failure, decompensated. The patient has been reporting intermittent palpitations. There have been some adjustments to his home medications for rate control. He has a previous history of hospitalization for congestive heart failure exacerbation felt triggered due to his atrial fibrillation. The patient reports that he has been monitoring his fluid intake and his salt intake very closely while he has been traveling. The patient received Lasix in the emergency department and has been voiding several times since arrival. We will monitor his ins and outs closely. Saline lock IV. Low-sodium cardiac diet has been ordered with fluid restrictions of 1500 mL per day. Consultation with Cardiology in the morning as per day team. Patient is followed closely by Dr. Rich. 2. Upper respiratory symptoms. The patient reports he was feeling ill, continued to have rhinorrhea and some nasal congestion. We will check a respiratory panel given patient's recent travel and symptoms potentially also contributing to patient's current status. 3. Dyspnea. Patient with singular noted hypoxic event in the Emergency Department before arrival. He is saturating quite well with supplemental oxygen , but does not normally wear this during the day. Plan to repeat O2 saturation and titrate off oxygen as tolerated during the day and wear at night. UNDERLYING CHRONIC MEDICAL ISSUES: 1. Atrial fibrillation on Eliquis. Patient is status post pacer. Continue Coreg at this time. Patient looks like he was last in hospital 12/26/2017, for cardioversion with Dr. Mae. The patient is no longer on amiodarone. Cardiology consult as noted above. 2. Hyperlipidemia: Continue statin. 3. CAD. Patient maximized on medical management. Denies any chest pain and troponin is negative. Unchanged EKG. 4. BPH. Patient voiding well currently, status post TURP. 5. COPD. Continue supplemental oxygen. Patient without evidence of acute exacerbation of COPD. Hold off on steroids and scheduled nebs for now. No wheezing audible on exam. 6. Nocturnal hypoxia with a negative sleep study. Continuous supplemental oxygen p.r.n. to maintain sats greater than 90. 7. Anemia likely of chronic disease. No evidence of active bleeding. 8. Thrombocytopenia, possibly related to patient's chronic anticoagulation, less likely. 9. CKD stage 3 with a creatinine 1.5 based on previous lab work. Appears patient is probably pretty close to his baseline. We will monitor renal function with scheduled diuretics. 10. Fluid, electrolyte, nutrition. Saline lock IV 1500 mL fluid restriction, salt restriction. Electrolytes adequate at this time. 11. Prophylaxis on Eliquis, which will continue when med rec is available. SCDs for now. 12. Code status is full. Patient does not want prolonged life support. 13. Disposition. Patient admitted to initially to observation status on the PCU floor for close cardiac monitoring. After evaluation of the patient, given the extensive nature of his symptoms and exacerbation of CHF anticipate that he will be here greater than 2 midnights' stay, and so, we will convert the patient to inpatient status. /[id number]/MODL MTDD
--- NOTE | 2018-04-22 07:21 | CPEKG ---
Test Reason : OPEN Blood Pressure : / mmHG Vent. Rate : 111 BPM Atrial Rate : 108 BPM P-R Int : 160 ms QRS Dur : 157 ms QT Int : 416 ms P-R-T Axes : 000 005 155 degrees QTc Int : 566 ms Atrial fibrillation Paired ventricular premature complexes IVCD, consider atypical LBBB Confirmed by Matt Sotelo ([id number]) on 04/22/2018 7:20:46 AM Referred By: Confirmed By:Matt Sotelo
--- NOTE | 2018-04-22 09:51 | PDMN ---
Medical Necessity Medical necessity: [facility] [place] M190 Heart Failure: 83 y/o w/ palpitations, orthopnea, BLE edema, and paroxysmal nocturnal dyspnea. Dx acute on chronic sCHF, decompensated, tachy 110s, creat 1.5, elevated BNP , URI s/sx, resp panel and BC pending, hypoxic, needs cont O2 to maintain sats. IV Lasix and fluid restriction ordered. After eval of the pt, given the extensive nature of his sx and exacerbation of CHF anticipate pt will need >2MN stay, IP status. hx sCHF w/ EF 25%, biventricular pacer, afib, mod MV regurg, CAD, COPD on O2 at night only, pulm HTN
--- NOTE | 2018-04-22 11:54 | HOSPPROG ---
Hospitalist Progress Note Assessment/Plan: 83 yo M wiht hx of a fib as well as systolic CHF presenting with acute systolic heart faliure in setting of a fib # acute on chronic systolic heart failure: with prior EF of 35% and now decreased to 25-30% with e/o volume overload. Will continue IV diuresis at this time, appreciate cardiology eval # a fib w/rvr: with rate improvement back on home dose of coreg, with review of pacer interrogation noted to have a fib freuently over the last several weeks and likely contributing to above, will likely require EDIL/CV in coming days # viral URI: noted to have human rhinovirus and enterovirus on viral PCR, will continue conservative mgmt, no e/o secondary bacterial infection on personal review of cxr # acute on chronic hypoxic respiratory failure: at baseline only on O2 at night but currently requiring during the day as well, due to CHF as well as viral infection, currently on 2L to maintain o2 sats in the mid 90s # CAD: without new wall motion abnormality on echo but may require further ischemic w/u prior to dc pending clinical course # copd: without e/o acute exacerbation # CKD: at baseline, will trend # IP status, will need > 48 hours for eval/mgmt of above Care plan discussed with cardiology. Care plan reviewed with cardiology as above. Subjective: no significant overnight events, patient notes that he is feeling better than yesterday Objective: Vital Signs Temp Pulse Resp BP Pulse Ox 36.5 C 112 H 18 114/78 96 04/22/18 07:43 04/22/18 07:43 04/22/18 07:43 04/22/18 07:43 04/22/18 07:43 Microbiology 04/22/18 06:30 Respiratory Panel (PCR) - Final Nasal, Sinus - Swab Human Rhinovirus/Enterovirus 04/21/18 04/22/18 04/23/18 05:59 05:59 05:59 Intake Total 240 Output Total 725 Balance -485 PT 17.4 SEC (12.0-15.0) H 04/22/18 03:18 INR 1.41 (0.83-1.16) H 04/22/18 03:18 awake alert anicteric op clear irreg irreg cta soft t nd bilateral lower extremity edema warm dry well perfused - Time Spent With Patient Time Spent with Patient: greater than 35 minutes Time Spent with Patient: Greater than 35 minutes spent on this patients care, greater than 50% of time spent counseling, educating, and coordinating care regarding the above mentioned plan. ICD10 Worksheet Patient Problems: Problems Problem Status Onset Chronic Disease Mgmt/Transitional Care Acute Congestive heart failure Acute Pneumonia Acute Severe sepsis Acute
[2018-04-22] MEDS ORDERED: POTASSIUM CL 10 MEQ TAB PO ONE (13:37)
[2018-04-22] MEDS: APIXABAN 2.5 MG TAB PO SCH ×2 (13:55→19:44)
[2018-04-22] MEDS: FUROSEMIDE 40 MG/4 ML VIAL IVP SCH (14:59)
--- NOTE | 2018-04-22 15:45 | ECHO ---
[email or web address] [address] Main: [phone] Fax: Transthoracic Echocardiogram Name: DRE BENITES MR#: [id number] Study Date: 04/22/2018 Study Time: 02:05 PM Date of : 1935 Age: 83 year(s) Height: 180.3 cm (71 in.) Weight: 80.74 kg (178 lb.) BSA: 2.01 m2 Gender: Male Examination: Limited Echo Indication: CHF, Acute SOB Image Quality: Contrast: Requested by: Holden Feldman BP: 123 mmHg/73 mmHg Heart Rate: Rhythm: Indication: CHF, Acute SOB Procedure Staff Generator Rebuilder: Sundar Vera RDCS Reading Physician: Beny Vargas MD Requesting Provider: Conclusions: Mildly dilated left ventricle. Severely reduced systolic LV function. The ejection fraction is estimated to be 25-30 %. Moderately reduced RV function. There is a ICD/Pacer wire noted in the right ventricle. There is mild thickening of the mitral valve leaflets. Measurements: Chambers Valvular Assessment AV/MV Valvular Assessment TV/PV Normal Normal Normal Name Value Range Name Value Range Name Value Range IVSd (2D): 0.8 cm (0.6 cm-1.1 TR Vmax: 3.22 mm/s ( - ) cm) TR PGmax: 41 mmHg ( - ) LVDd (2D): 6.2 cm (4.2 cm-5.9 syst. PAP: 46 mmHg ( - ) cm) LVDs (2D): 5.2 cm (2.1 cm-4 cm) LVPWd (2D): 1.0 cm (0.6 cm-1 cm) LVEF (BP): 32 % (>=55 %) EF Range: 25-30 % Continued Measurements: Valvular Assessment TV/PV Name Value CVP (est.): 5 mmHg Patient: DRE BENITES Study Date: 04/22/2018 Page 1 of 2 02:05 PM Findings: Left Ventricle: Mildly dilated left ventricle. Severely reduced systolic LV function. The ejection fraction is estimated to be 25-30 %. Right Ventricle: Moderately reduced RV function. There is a ICD/Pacer wire noted in the right ventricle. Mitral Valve: There is mild thickening of the mitral valve leaflets. Moderate mitral annular calcification. Mild mitral valve regurgitation is present. Pericardium: No pericardial effusion. Exam Comments: (No Signature Object) Patient: DRE BENITES Study Date: 04/22/2018 Page 2 of 2 02:05 PM [id number]
--- NOTE | 2018-04-22 17:08 | ASMTCMCOM ---
CM Note CM Note Notes: Pt admitted for respiratory distress due to acute rhinovirus on top of chronic CHF. Pt also has a pacer. Pt lives with in [place] independently and has no therapies ordered. Pt likely to d/c tomorrow independently. No CM needs noted at this time. D/C Plan: home independently with Date Signed: 04/22/2018 05:08 PM Electronically Signed By:Marni Manuel
[2018-04-22] MEDS: CARVEDILOL 6.25 MG TAB PO SCH (18:49)
--- NOTE | 2018-04-22 19:03 | GCON ---
CARDIOLOGY CONSULTATION REFERRING PHYSICIAN: Arianna Whipple MD REASON FOR REQUEST FOR CONSULTATION: Acute on chronic systolic heart failure. HISTORY OF PRESENT ILLNESS: The patient is an 83-year-old male, who is well known to our practice. His primary senior buyer is Dr. Blake Rich. He has significant past history that includes CAD with previous PCI of the LAD, paroxysmal atrial fibrillation, cardiomyopathy with past history of biventricular AICD, mitral regurgitation, COPD, and premature ventricular contractions. The patient informs me that he has been feeling significant fatigue for the last month. He does note that he has noted an irregular pulse with this. He was seen at our office on April 08, in which an electrocardiogram was done at that time. It was noted that he was in atrial fibrillation. At that point, his carvedilol dosage had been increased. He had been known in the past to have intermittent atrial fibrillation, and it was hoped for him to convert back into regular rhythm. Since then, last week, he traveled to use the [facility] to visit family. Upon returning, he does report that he developed an upper respiratory infection and has noticed he has become significantly short of breath, reporting last evening having severe orthopnea, but no PND or edema. He denies any chest pressure or pain. He does feel that he has not converted out of atrial fibrillation since his office visit in April. He does report that he felt like while he was on vacation, he did have a 5 to 6-pound weight gain. Denies any lightheadedness, near syncope, or syncopal events. Reporting no feeling as if his defibrillator had delivered therapy. With this significant shortness of breath last evening, he did present to the [facility] [place] [place] Emergency Department. Upon arrival, per the notes, he was found to be mildly hypoxic, which returned back to normal mild oxygen. Laboratory studies were drawn, noting a significant elevated proBNP of 19,800. He was given IV diuretics and transferred over to [facility] where he has remained on the telemetry floor. Electrocardiogram also done at that time confirmed that he continued to be in AFib with frequent PVCs. He informs me at the time of my examination that his shortness of breath has improved and feels that he has had fairly well response to IV diuresis yesterday, but he continues to experience orthopnea. He denies any recent fevers, chills, or night sweats. He continues to bobo with rhinorrhea since returning home. Denies any other significant recent health history. PAST MEDICAL HISTORY: 1. Chronic systolic heart failure, with most recent echocardiogram done March 07, 2018, showing an EF of 35%. 2. Atrial fibrillation for which he has had 2 cardioversions done in the last year. 3. Moderate mitral regurgitation. 4. CAD with previous stenting of the LAD. 5. COPD. 6. Bundle branch block. 7. Nocturnal hypoxia for which he wears oxygen at night. 8. Hyperlipidemia. 9. Pulmonary hypertension. 10. Chronic renal insufficiency with baseline creatinine between 1.3 to 1.5. PAST SURGICAL HISTORY: 1. Biventricular AICD implantation. 2. Cardiac catheterization with PCI of the LAD in 2006. 3. Diskectomy. 4. TURP. 5. Rotator cuff repair. 6. Vasectomy. 7. Tonsillectomy. 8. Adenoidectomy. 9. Mastoidectomy at age 2. FAMILY HISTORY: The patient reports no significant family history of coronary artery disease at early onset age, but does state that his mother did have heart disease in her elderly age, but of cancer at age 92. SOCIAL HISTORY: He is . He had 2 children. One of them is . He had recently visited his grandson and son's in [place]. The patient reports previous tobacco abuse, quitting in 1981. Reports rare alcohol use. Denies any illicit drug use. Does report significant past history of EtOH abuse and tobacco abuse in his younger years. ALLERGIES: He has no known drug allergies. MEDICATIONS AT HOME: Vitamin D 1000 units p.o. daily, PreserVision soft gel tablets 1 tablet p.o. daily, Eliquis 2.5 mg p.o. b.i.d., albuterol 1 to 2 puffs inhaled daily p.r.n., Demadex 20 mg p.o. every 3 days, Entresto 49/51 mg 1 tablet p.o. b.i.d., pravastatin 20 mg p.o. q.h.s., multivitamin p.o. daily, carvedilol 12.5 mg p.o. h.s., carvedilol 25 mg p.o. q.a.m., and 1 mg p.o. h.s. p.r.n. REVIEW OF SYSTEMS: A 10-point review of systems done, all negative except as mentioned above. PHYSICAL EXAMINATION: General appearance, medium built, well-groomed, male he is alert oriented to person place time situation, currently appears to be in no acute distress. HEENT: Head is normocephalic, lips and tongue are pink moist with no signs cyanosis, conjunctivae pink. Neck: Trachea is midline, +2 carotid pulses bilateral, no auscultated bruits, jugular vein elevation of 5-6 cm above sternal notch at a 45 degree angle. Respiratory : Rales noted in bases bilateral, no rales rhonchi or wheezing. No accessary muscle use, no intercostal muscle retraction noted. Cardiac: Irregular rate, regular rhythm, S1-S2, 2/6 systolic murmur noted along left sternal border. Abdomen: Soft, nontender, bowel sounds x4 quadrants, no organomegaly, no palpable masses. Skin: [place], warm, dry, no cyanosis, no clubbing, trace to +1 peripheral edema bilateral lower extremities. Vascular: +2 carotids bilateral +2 radials bilateral +1 post tibial pulses. LABORATORIES: Laboratory studies drawn last evening show a WBC of 5.11, hemoglobin 11.2, hematocrit 33.1, and platelet count 82. INR 1.47. Sodium 138 , potassium 4.6, chloride 106, CO2 of 25, BUN 37, creatinine 1.5, and glucose 99. Calcium 9.3, magnesium 2.1, total bilirubin 0.8, AST 25, ALT 43, and alkaline phosphatase 87. Troponin of 0.012. Total protein 6.1 and albumin 3.5. STUDIES: Electrocardiogram done in the emergency department last evening, showing atrial fibrillation with ventricular rate at 111 BPM, and episodes of left bundle branch block. Chest x-ray showing chronic cardiomegaly with likely compensated CHF. Recent echocardiogram done on March 07, 2018, showing EF of 35% with severely reduced LV systolic function, trivial AI, [id number] TR, [id number] MR, and RVSP estimated at 42 mmHg. ASSESSMENT AND PLAN: 1. Acute systolic heart failure. The patient has known reduced left ventricular ejection fraction with most recent echocardiogram showing an ejection fraction of 35%. Reporting ongoing shortness of breath and orthopnea, improvement with diuresis. Chest x-ray showing congestive heart failure, noted with significantly elevated BNP of greater than 19,000 (average BNP usually around the 5000s). At this time, we will continue on intravenous diuresing of Lasix at 40 mg p.o. b.i.d. Continue monitoring weights closely. Low-sodium diet. I would like to repeat a limited echocardiogram for reevaluation of his left ventriculogram. We will resume him on his carvedilol dosage, but will hold off on Entresto at this time to allow for continuous diuresis and also because of mildly elevated creatinine. 2. Atrial fibrillation: I have had the [facility] screening representative come and evaluate his device. It appears that he has probably been in atrial fibrillation for the last few weeks, persistently. Unfortunately, this is probably contributing to his heart failure. With the faster rates, his device is not able to perform biventricular pacing, with resynchronous therapy, potentially reducing his ejection fraction. At current time, we will resume him back on carvedilol as mentioned above. Would like to diurese him for a day or two and then consideration of doing EDIL cardioversion. Since this was a persistent problem in the past, potentially will have him be evaluated by Electrophysiology Services to discuss long-term management of his atrial fibrillation, with consideration of atrioventricular node ablation versus antiarrhythmic therapy. Depending on how he does with cardioversion, he may be able to see Electrophysiology Services as an outpatient. We will continue him on home dose of Eliquis for anticoagulation. 3. Upper respiratory infection: The patient was noted to be positive for human rhinovirus. Blood cultures are currently pending. We will defer treatment to Hospitalist Services. 4. Hypoxia: The patient was noted to be hypoxic. This is probably a combination of his systolic heart failure and upper respiratory infection. He is noted to have nocturnal hypoxia at night. He has been placed on supplemental oxygen therapy and maintaining a SpO2 of greater than 90. 5. Coronary artery disease: Patient with noted previous history of percutaneous coronary intervention of the left anterior descending. His most recent echocardiogram showed global hypokinesis with a low ejection fraction of 35%. The patient reports no history of chest pain or pressure, negative troponin on admission. Repeat limited echocardiogram today for further evaluation. 6. Hyperlipidemia: Resume the patient's current statin therapy. Continue to monitor. 7. Chronic renal insufficiency: We will monitor closely with intravenous diuresis. The patient is known to have a baseline creatinine between 1.3 and 1.5. 8. Nocturnal hypoxia: The patient reports negative sleep studies multiple years ago. Continue using oxygen at night. 9. Chronic obstructive pulmonary disease: Oxygen therapy at night, resume home medications, and defer treatment to Hospitalist Services. Thank you for this consultation. We will be glad to follow along with you. /[id number]/MODL MTDD
[2018-04-22] MEDS: guaiFENesin 600 MG TAB.ER PO SCH (19:43)
[2018-04-22] MEDS: PRAVASTATIN SODIUM 20 MG TAB PO SCH (19:45)
[2018-04-22] MEDS: MULTIVITAMINS 1 EACH TAB PO SCH (19:45)
[2018-04-22] MEDS ORDERED: SACUBITRIL/VALSARTAN 49/51MG 1 EA TAB PO SCH (21:00)
[2018-04-22] MEDS ORDERED: CARVEDILOL 6.25 MG TAB PO SCH (21:00)
[2018-04-23 04:17] LABS: PLATELET COUNT 78 10^3/uL (150-400)
[2018-04-23] MEDS ORDERED: MAGNESIUM SULF 1 GM/DEXTROSE 100 ML IV ONE (08:13)
[2018-04-23] MEDS: guaiFENesin 600 MG TAB.ER PO SCH ×2 (08:47→21:17)
[2018-04-23] MEDS: CARVEDILOL 25 MG TAB PO SCH ×2 (08:47→18:33)
[2018-04-23] MEDS: APIXABAN 2.5 MG TAB PO SCH ×2 (08:47→21:17)
[2018-04-23] MEDS: CHOLECALCIFEROL VIT D3 1,000 UNITS TAB PO SCH (08:47)
[2018-04-23] MEDS: PRESERVISION AREDS2 FORMULA EYE VIT 1 EACH PO SCH (08:47)
[2018-04-23] MEDS ORDERED: CARVEDILOL 25 MG TAB PO SCH (09:00)
[2018-04-23] MEDS: CARVEDILOL 6.25 MG TAB PO SCH (09:07)
[2018-04-23] MEDS: FUROSEMIDE 40 MG/4 ML VIAL IVP SCH ×2 (09:07→14:12)
[2018-04-23] MEDS ORDERED: POTASSIUM CL 20 MEQ TAB PO ONE (13:28)
[2018-04-23] MEDS ORDERED: PROTOCOL POTASSIUM 1 DOSE MISC PRN (13:29)
--- NOTE | 2018-04-23 14:21 | HOSPPROG ---
Hospitalist Progress Note Assessment/Plan: 83 yo M wiht hx of a fib as well as systolic CHF presenting with acute systolic heart faliure in setting of a fib # acute on chronic systolic heart failure: with prior EF of 35% and now decreased to 25-30% with e/o volume overload. Will continue IV diuresis for the time being # a fib w/rvr: with rate improvement back on home dose of coreg, with review of pacer interrogation noted to have a fib frequently over the last several weeks and likely contributing to above, will likely require EDIL/CV in coming days # viral URI: noted to have human rhinovirus and enterovirus on viral PCR, will continue conservative mgmt, no e/o secondary bacterial infection on personal review of cxr # acute on chronic hypoxic respiratory failure: at baseline only on O2 at night but currently requiring during the day as well, due to CHF as well as viral infection, currently on 2L to maintain o2 sats in the mid 90s # CAD: without new wall motion abnormality on echo but may require further ischemic w/u prior to dc pending clinical course # copd: without e/o acute exacerbation # CKD: at baseline, will trend # IP status, will need > 48 hours for eval/mgmt of above Subjective: no significant overnight events, patient notes feeling better overall but still fatigued Objective: Vital Signs Temp Pulse Resp BP Pulse Ox 36.7 C 107 H 13 88/53 L 97 04/23/18 11:52 04/23/18 12:01 04/23/18 11:52 04/23/18 11:52 04/23/18 12:01 Microbiology 04/22/18 06:30 Respiratory Panel (PCR) - Final Nasal, Sinus - Swab Human Rhinovirus/Enterovirus Laboratory Results 04/23/18 03:43 04/23/18 03:43 04/22/18 04/23/18 04/24/18 05:59 05:59 05:59 Intake Total 1130 400 Output Total 2525 800 Balance -1395 -400 PT 17.4 SEC (12.0-15.0) H 04/22/18 03:18 INR 1.41 (0.83-1.16) H 04/22/18 03:18 awake alert anicteric op clear irreg irreg cta soft t nd bilateral lower extremity edema warm dry well perfused ICD10 Worksheet Patient Problems: Problems Problem Status Onset Congestive heart failure Acute Chronic Disease Mgmt/Transitional Care Acute Pneumonia Acute Severe sepsis Acute
--- NOTE | 2018-04-23 18:14 | PDCARPN ---
Cardiology Progress Note Chief Complaint: Continues to report fatigue symptoms. Assessment/Plan: Assessment: 83-year-old male with significant past history that includes CAD with previous PCI of the LAD, paroxysmal atrial fibrillation, cardiomyopathy with past history of Bi V AICD, mitral regurgitation, COPD PVCs bundle-branch hyperlipidemia, pulmonary hypertension, and chronic renal insufficiency ( baseline creatinine between 1.3-1.5). Admitted on 04/22/2018 for increased shortness of breath, upper respiratory infection symptoms, and ongoing fatigue. On admission, noted to have BNP 19,800, negative troponin of 0.02. Also positive for human rhinovirus. Limited echocardiogram done 04/22/2018 showing severely reduced LV systolic function with EF of 25-30%, moderately reduced RV function, mild thickening of mitral leaflets. In comparison to previous echocardiogram done March 07 of this year, his EF is down from 35%. Started on IV diuresis, increased beta blockage therapy for rate control. 04/23/2018: Patient reports continuation of fatigue symptoms, but reports significant improvement in shortness of breath. Per patient, his weight is down approximately 2 kilos from yesterday. O>I. Continues to maintain atrial fibrillation with frequent PVCs, but better rate response, with heart rate in the 90s to 100s. Noted to be mildly hypotensive last evening. Plan: 1. Acute on chronic systolic heart failure: EF decreased since previous echocardiogram. Has made improvement with symptoms and weight reduction with IV diuresis. Noted hypotension, have discontinued his Entresto for time being, continue with IV Lasix. Continue monitoring electrolyte renal function closely. 2. Persistent atrial fibrillation: Continues to maintain AFib. This is probably contributing to his heart failure, not allowing his Bi V pacemaker to provide resynchronization therapy, causing mild drop in his ejection fraction. Increased dosage of carvedilol to 25 mg p.o. Twice daily. He is on full anticoagulation of Eliquis. Will plan for him to undergo EDIL/cardioversion tomorrow with Dr. Varags. 3. CAD: No new wall motion abnormalities noted on echo. Negative troponin. Patient denies of any chest pressure or pain. Continue on anti-platelet therapy of aspirin. 4. Viral URI: Positive for human rhino virus and enterovirus. Defer treatment to hospitalist services. 5. Acute on chronic hypoxic failure: Maintaining SpO2 greater than 90% on O2 at night. Requiring O2 during the day, continue monitor. 6 chronic renal insufficiency: Creatinine remains patient's baseline. Continue monitor with increased diuresis.. 7. Hyperlipidemia: On home dose of statin therapy. 8. COPD: Oxygen therapy as mentioned above, resumed on home medications. 04/23/18 18:14 Subjective: Denies of any chest pressure or pain. Reports ongoing feeling of palpitations. Denies of any lightheadedness, near-syncope or syncopal events. Reports improvement in orthopnea. Still experiencing OLIVO. Reviewed/Discussed With: hospitalist (Dr. Whipple), other (Dr Vargas) Objective: Vital Signs (8 Hrs) Temp Pulse Resp BP Pulse Ox 04/23/18 18:10 99 22 H 102/69 97 04/23/18 15:18 36.7 C 91 17 83/51 L 94 04/23/18 12:01 107 H 97 04/23/18 11:52 36.7 C 103 H 13 88/53 L 96 Intake/Output (24 Hrs) 04/22/18 04/23/18 04/24/18 05:59 05:59 05:59 Intake Total 1130 900 Output Total 2525 800 Balance -1395 100 Intake: Oral (ml) 1130 800 IV Infused (ml) 100 Magnesium Sulf 1 gm/ 100 Dextrose 100 ml @ 100 mls /hr IV ONCE ONE Rx#: [id number] Output: Urine (ml) 2525 800 Urinal 2525 800 Other: Weight 76.1 kg Number of Voids Urinal 1 Number of Stools Urinal 2 1 Result Diagrams: 04/23/18 03:43 04/23/18 03:43 - Physical Exam Constitutional: WDWN, no apparent distress Ears, Nose, Mouth, Throat: moist mucous membranes Cardiovascular: irregularly irregular, jugular vein distention (4-5 cm above sternal notch), pulses symmetric bilat, No carotid bruit Peripheral Pulses: 1+: dorsalis-pedis (R), dorsalis-pedis (L), 2+: carotid (R), carotid (L) Respiratory: other (Rales noted in bases, no rhonchi or wheezing noted. No accessary muscle use, no intercostal muscle retraction noted) Gastrointestinal: normoactive bowel sounds Skin: no rashes, warm, No no edema (Trace to +1 peripheral edema bilateral lower extremity) Neurologic: AAOx3 Psychiatric: cooperative, interactive, following commands ICD10 Worksheet Patient Problems: Problems Problem Status Onset Chronic Disease Mgmt/Transitional Care Acute Congestive heart failure Acute Pneumonia Acute Severe sepsis Acute
[2018-04-23] MEDS: MULTIVITAMINS 1 EACH TAB PO SCH (21:17)
[2018-04-23] MEDS: PRAVASTATIN SODIUM 20 MG TAB PO SCH (21:17)
[2018-04-24 04:44] LABS: INR 1.42 (0.83-1.16); PROTIME(PATIENT) 17.5 SEC (12.0-15.0)
[2018-04-24] MEDS ORDERED: ATROPINE SULFATE 1 MG/10 ML SYR IVP ONE (06:00)
[2018-04-24] MEDS ORDERED: NS 1,000 ML IV ONE (06:00)
[2018-04-24] MEDS ORDERED: ALBUTEROL 3 ML DEYVIAL IH PRN (07:17)
[2018-04-24] MEDS: CARVEDILOL 25 MG TAB PO SCH ×2 (09:12→18:03)
[2018-04-24] MEDS: APIXABAN 2.5 MG TAB PO SCH ×2 (09:12→21:28)
--- NOTE | 2018-04-24 10:01 | PDANEPAE ---
ANE History of Present Illness here for EDIL/CV acute on chronic heart failure, AF ANE Past Medical History - Cardiovascular History Hx Hypertension: Yes Hx Arrhythmias: Yes Hx Coronary Artery / Peripheral Vascular Disease: Yes Hx CHF / Valvular Disease: Yes - Pulmonary History Hx COPD: Yes Hx Asthma/Reactive Airway Disease: No Hx Oxygen in Use at Home: Yes O2 in Use at Home (L/minute): 2L Hx Sleep Apnea: Yes - Endocrine History Hx Diabetes: No - Renal History Hx Renal Disorders: Yes - Liver History Hx Hepatic Disorders: No - Chronic Pain History Chronic Pain: No ANE Review of Systems Review of systems is: negative Review of Systems: - Exercise capacity Exercise capacity: <4 METS, >=4 METS - Pacemaker Pacemaker Type: Bi-Ventricular Pacemaker Production Hardener: [facility] [facility] Patient History - Allergies Allergies/Adverse Reactions: No Allergies [NKDA] Allergy (Verified 10/22/16 14:14) - Home Medications Home medications: home medication list seen and reviewed Home Medications: Pravastatin Sodium 20 mg PO HS 03/24/13 [Last Taken 04/21/18] Apixaban [Eliquis] 2.5 mg PO BID 12/12/16 [Last Taken 04/21/18 21:00] Carvedilol [Coreg (*)] 25 mg PO DAILY 12/12/16 [Last Taken 04/21/18] Sacubitril/Valsartan 49/51Mg [Entresto 49 mg/51 mg (RX)] 1 ea PO BID 12/12/16 [ Last Taken 04/21/18 21:00] Albuterol [Proventil Inhaler HFA (*)] 1 - 2 puffs IH DAILY PRN 01/02/17 [Last Taken Unknown] Cholecalciferol Vit D3 [Vitamin D3 (*)] 1,000 units PO DAILY 01/02/17 [Last Taken 04/21/18] Multivitamins [Multivitamin (*)] 1 each PO HS 01/02/17 [Last Taken 04/21/18] Torsemide [Demadex] 20 mg PO Q3D 01/02/17 [Last Taken 01/01/17] rOPINIRole HCL [Requip 1mg (*)] 1 mg PO HS PRN 12/23/17 [Last Taken 04/21/18] C/E/Zn/Cu/OM3/DHA/EPA/LUT/ZEAX [Preservision Areds 2 Softgel] 1 each PO DAILY [Last Taken 04/21/18] Carvedilol [Coreg (*)] 12.5 mg PO HS 04/22/18 [Last Taken 04/21/18] - NPO status NPO Status: no food or drink >8 hours - Smoking Hx Smoking Status: Former smoker ANE Labs/Vital Signs - Labs Result Diagrams: 04/23/18 03:43 04/24/18 03:28 - Vital Signs Vital Signs: reviewed preoperatively; see RN documention for details Blood Pressure: 107/73 Heart Rate: 110 Respiratory Rate: 20 O2 Sat (%): 94 Height: 180.34 cm Weight: 75.7 kg ANE Physical Exam - Airway Neck exam: FROM Mallampati Score: Class 1 - Pulmonary Pulmonary: no respiratory distress - Cardiovascular Cardiovascular: irregularly irregular - ASA Status ASA Status: III ANE Anesthesia Plan Anesthesia Plan: GA with mask
[2018-04-24] MEDS ORDERED: ATROPINE SULFATE 1 MG/10 ML SYR ONE (10:45)
[2018-04-24] MEDS ORDERED: PROPOFOL 200 MG/20 ML VIAL ONE (10:52)
--- NOTE | 2018-04-24 11:43 | POSTANESTH ---
Post Anesthetic Evaluation Cardiovascular Status: Normal, Stable Respiratory Status: Normal, Stable Level of Consciousness/Mental Status: Can Participate in Eval Pain Control: Adequate, Prn Tx Ordered Nausea/Vomiting Control: Adequate, Prn Tx Ordered Complications Possibly Related to Anesthesia: None Noted
--- NOTE | 2018-04-24 11:58 | CPR ---
DATE OF PROCEDURE: 04/24/2018 PROCEDURE PERFORMED: Transesophageal echocardiogram and EDIL cardioversion. INDICATION FOR PROCEDURE: Atrial fibrillation with rapid ventricular response and worsening congesti ve heart failure. PROCEDURE: After informed consent was obtained for EDIL cardioversion, as well as sedation, the patie nt was sedated with propofol. Bite block was in place. Once appropriate level of sedation was achie nataliia, EDIL probe was passed without incident. EDIL probe was used to take images of the left atrial june endage in multiple projections. Images were also obtained of the left atrium, interatrial septum, le ft ventricle. Please see EDIL report for details. There is no evidence of left atrial or left atrial appendage thrombus. EDIL probe was removed without incident. The patient underwent a single biphasic synchronized shock of 200 joules of energy with protestant o f sinus rhythm. Post-procedure ICD interrogation demonstrated normal device function. Atrial lead demonstrated sinus rhythm with frequent PVCs. No changes were made to his ICD settings. PLAN: Patient will return to [address] [place], [place] [address]etry for further care in the setting of systolic congestive heart failure. /[id number]/MODL
--- NOTE | 2018-04-24 12:00 | ASMTCMCOM ---
CM Note CM Note Notes: Pts case discussed in morning rounds. PT has worked with pt and cleared him to d/c home with supportive . Pt is getting a cardioversion today. No other needs at this time. CM available for changes. Plan: Independent Date Signed: 04/24/2018 11:59 AM Electronically Signed By:BETI Balderrama
--- NOTE | 2018-04-24 12:02 | HOSPPROG ---
Hospitalist Progress Note Assessment/Plan: 83 yo M wiht hx of a fib as well as systolic CHF presenting with acute systolic heart faliure in setting of a fib # acute on chronic systolic heart failure: with prior EF of 35% and now decreased to 25-30% with e/o volume overload on arrival. Patient is now likely euvolemic and with new metabolic alk will go to oral lasix and monitor bmp overnight # a fib w/rvr: with rate improvement back on home dose of coreg, with review of pacer interrogation noted to have a fib frequently over the last several weeks and likely contributing to above, going for EDIL/CV today. # viral URI: noted to have human rhinovirus and enterovirus on viral PCR, will continue conservative mgmt, no e/o secondary bacterial infection on personal review of cxr # metabolic alkalosis: related to diuresis, transitioned to oral lasix and will monitor # acute on chronic hypoxic respiratory failure: at baseline only on O2 at night but currently requiring during the day as well, due to CHF as well as viral infection, currently on 2L to maintain o2 sats in the mid 90s # CAD: without new wall motion abnormality on echo, cardiology following # copd: without e/o acute exacerbation # CKD: at baseline, will trend # IP status, will need > 48 hours for eval/mgmt of above Care plan reviewed with cardiology Subjective: no significant overnight events, patient notes that he feels he has lost lots of weight since admission Objective: Vital Signs Temp Pulse Resp BP Pulse Ox 36.7 C 110 H 20 107/73 94 04/24/18 08:22 04/24/18 11:42 04/24/18 11:42 04/24/18 11:42 04/24/18 11:42 Laboratory Results 04/23/18 03:43 04/24/18 03:28 04/23/18 04/24/18 04/25/18 05:59 05:59 05:59 Intake Total 1130 1550 Output Total 2525 1200 Balance -1395 350 PT 17.5 SEC (12.0-15.0) H 04/24/18 03:28 INR 1.42 (0.83-1.16) H 04/24/18 03:28 awake alert anicteric op clear irreg irreg cta soft t nd bilateral lower extremity edema warm dry well perfused ICD10 Worksheet Patient Problems: Problems Problem Status Onset Congestive heart failure Acute Chronic Disease Mgmt/Transitional Care Acute Pneumonia Acute Severe sepsis Acute
--- NOTE | 2018-04-24 12:26 | CPEKG ---
Test Reason : OPEN Blood Pressure : / mmHG Vent. Rate : 103 BPM Atrial Rate : 000 BPM P-R Int : 166 ms QRS Dur : 169 ms QT Int : 377 ms P-R-T Axes : 125 032 234 degrees QTc Int : 494 ms Atrial fibrillation Paired ventricular premature complexes IVCD, consider atypical LBBB Confirmed by Sigifredo Mccauley ([id number]) on 04/24/2018 12:25:43 PM Referred By: Confirmed By:Sigifredo Mccauley
--- NOTE | 2018-04-24 12:38 | CPEKG ---
Test Reason : OPEN Blood Pressure : / mmHG Vent. Rate : 096 BPM Atrial Rate : 070 BPM P-R Int : 159 ms QRS Dur : 156 ms QT Int : 486 ms P-R-T Axes : 131 247 082 degrees QTc Int : 615 ms Atrial-sensed ventricular-paced complexes Atrial fibrillation appears at the end of this tracing Confirmed by Sigifredo Mccauley ([id number]) on 04/24/2018 12:37:31 PM Referred By: Confirmed By:Sigifredo Mccauley
[2018-04-24] MEDS: FUROSEMIDE 40 MG/4 ML VIAL IVP SCH (13:12)
[2018-04-24] MEDS: guaiFENesin 600 MG TAB.ER PO SCH ×2 (14:06→21:28)
[2018-04-24] MEDS: CHOLECALCIFEROL VIT D3 1,000 UNITS TAB PO SCH (14:06)
[2018-04-24] MEDS: PRESERVISION AREDS2 FORMULA EYE VIT 1 EACH PO SCH (14:06)
[2018-04-24] MEDS: FUROSEMIDE 40 MG TAB PO SCH (16:39)
--- NOTE | 2018-04-24 17:53 | ECHO ---
[email or web address] [id number] Main: [phone] Fax: Transesophageal Echocardiography Name: DRE BENITES MR#: [id number] Study Date: 04/24/2018 Study Time: 11:04 AM Date of : 1935 Age: 83 year(s) Height: 180.3 cm (71 in.) Weight: 75.75 kg (167 lb.) BSA: 1.95 m2 Gender: Male Examination: EDIL Indication: a fib rvr Image Quality: Adequate Contrast: Requested by: Holden Feldman Heart Rate: Rhythm: BP: / Procedure Staff Manufacturing Technology Analyst: Pallavi Rubio [facility] Reading Physician: Beny Vargas MD Requesting Provider: EDIL Exam Details Measurements: Chambers Valvular Assessment AV/MV Valvular Assessment TV/PV Normal Normal Normal Name Value Range Name Value Range Name Value Range EF Range: 25-30 % Additional Measurements: Findings: Left Ventricle: Mildly dilated left ventricle. The ejection fraction is estimated to be 25-30 %. Reduced LV function. Right Ventricle: There is a pacemaker lead noted in the right ventricle. Left Atrial Appendage: The left atrial appendage is unilobular. Good color flow doppler in the left atrial appendage. No thrombus in left appendage. Mitral Valve: The mitral valve is normal in appearance and function. Mild mitral valve regurgitation is present. No mitral stenosis is present. Aortic Valve: The aortic valve is tri-leaflet. l1n Patient: DRE BENITES Study Date: 04/24/2018 Page 1 of 2 11:04 AM (No Signature Object) Patient: DRE BENITES Study Date: 04/24/2018 Page 2 of 2 11:04 AM [id number]
[2018-04-24] MEDS: PRAVASTATIN SODIUM 20 MG TAB PO SCH (21:28)
[2018-04-24] MEDS: MULTIVITAMINS 1 EACH TAB PO SCH (21:28)
[2018-04-25] MEDS: CHOLECALCIFEROL VIT D3 1,000 UNITS TAB PO SCH (09:48)
[2018-04-25] MEDS: PRESERVISION AREDS2 FORMULA EYE VIT 1 EACH PO SCH (09:48)
[2018-04-25] MEDS: CARVEDILOL 25 MG TAB PO SCH ×2 (09:48→18:05)
[2018-04-25] MEDS: guaiFENesin 600 MG TAB.ER PO SCH ×2 (09:51→21:04)
[2018-04-25] MEDS: FUROSEMIDE 40 MG TAB PO SCH (09:51)
[2018-04-25] MEDS: APIXABAN 2.5 MG TAB PO SCH ×2 (09:51→21:04)
--- NOTE | 2018-04-25 10:51 | PDCARPN ---
Cardiology Progress Note Assessment/Plan: Assessment: 1. Acute on chronic systolic congestive heart failure 2. Peristant Atrial Fibrillation s/p EDIL DCCV yesterday 3. CAD with hx of PCI 4. Acute on chronic respiratory failure 5. Chronic renal insufficiency with Cr between 1.3 and 1.5 6. COPD 7. Viral Upper Respiratory Failure Plan: -DC PO Lasix -Start his home diuretic of Torsemide 20 mg. (He was on q 3 days, would start him back on torsemide 20 mg daily for one week and then follow up in our office) -Continue Coreg 25 mg PO Bid -Continue Eliquis 2.5 mg po bid -Return to home dose of Entresto at time of discharge 04/25/18 10:51 Subjective: Mr. Ch is feeling well today. States he feels much better post cardioversion yesterday. He appears euvolemic on exam. Weight is down to 75.3 Kg (admitted at 80.74 Kg). His Cr is stable at 1.5, BUN has increased over the last 2 days from 36 to 48. BP is stable. Telemetry demonstrates Paced Ryhthm with PVC's primariliy. He remains on Eliquis 2.5 mg bid. He feels he is back to baseline. Reviewed/Discussed With: hospitalist Objective: Vital Signs (8 Hrs) Temp Pulse Resp BP Pulse Ox 04/25/18 09:48 109/50 L 04/25/18 07:33 36.4 C 82 19 117/80 92 04/25/18 04:00 36.6 C 87 20 119/65 94 Intake/Output (24 Hrs) 04/24/18 04/25/18 04/26/18 05:59 05:59 05:59 Intake Total 1550 1765 Output Total 1200 1550 Balance 350 215 Intake: Oral (ml) 1450 1765 IV Infused (ml) 100 Magnesium Sulf 1 gm/ 100 Dextrose 100 ml @ 100 mls /hr IV ONCE ONE Rx#: [id number] Output: Urine (ml) 1200 1550 Toilet 1350 Urinal 1200 200 Other: Weight 75.7 kg 75.3 kg Intake Quantity Yes Yes Sufficient Number of Voids Toilet 2 Number of Stools Urinal 1 Result Diagrams: 04/23/18 03:43 04/25/18 03:50 - Physical Exam Constitutional: WDWN Ears, Nose, Mouth, Throat: moist mucous membranes Cardiovascular: no murmurs (1/6 systolic murmur at apex ), no rubs, no gallops, other (No ankle edema. ) Respiratory: clear to auscultate bilat Gastrointestinal: normoactive bowel sounds Skin: no rashes Neurologic: AAOx3, CN II-XII grossly intact Psychiatric: cooperative, interactive ICD10 Worksheet Patient Problems: Problems Problem Status Onset Congestive heart failure Acute Chronic Disease Mgmt/Transitional Care Acute Pneumonia Acute Severe sepsis Acute
--- NOTE | 2018-04-25 13:59 | HOSPPROG ---
Hospitalist Progress Note Assessment/Plan: # hypotension - likely d/t overdiuresis and increase in BB - will try a small amount fo IVF today and follow - would like to continue coreg to avoid a-fib # a-fib with RVR s/p DCCV, now NSR with frequent PVCs - cont coreg 25/ (home dose was 25/12.5) - cont eliquis - ultimate plan for AV node ablation # acute on chronic systolic CHF - EF was lower than previous on admission while in a-fib as he loses bi-v pacer synchronicity - significant diuresis since admit - s/p bi-V pacer - cont coreg - restart entresto on discharge # viral bronchitis - supportive care # acute on chronic resp failure - d/t CHF, bronchitis # CKD - SCr 1.5 at baseline # CAD - chronic, no CP # COPD - no exacerbation Subjective: feels slightly lightheaded Objective: Vital Signs Temp Pulse Resp BP Pulse Ox 36.6 C 90 17 77/49 L 94 04/25/18 11:06 04/25/18 11:06 04/25/18 11:06 04/25/18 11:06 04/25/18 11:06 Laboratory Results 04/23/18 03:43 04/25/18 03:50 04/24/18 04/25/18 04/26/18 05:59 05:59 05:59 Intake Total 1550 1765 Output Total 1200 1550 Balance 350 215 PT 17.5 SEC (12.0-15.0) H 04/24/18 03:28 INR 1.42 (0.83-1.16) H 04/24/18 03:28 chart reviewed discussed with Holden Baxter echo reviewed - Physical Exam Constitutional: no apparent distress, appears nourished Cardiovascular: regular rate and rhythym, systolic murmur, No irregularly irregular, No diastolic murmur Respiratory: no respiratory distress, no rales or rhonchi, clear to auscultation Gastrointestinal: soft, non-tender abdomen, no palpable masses, No guarding, No rebound, No distension ICD10 Worksheet Patient Problems: Problems Problem Status Onset Chronic Disease Mgmt/Transitional Care Acute Congestive heart failure Acute Pneumonia Acute Severe sepsis Acute
[2018-04-25] MEDS ORDERED: NS 1,000 ML IV SCH (14:00)
[2018-04-25] MEDS: PRAVASTATIN SODIUM 20 MG TAB PO SCH (21:04)
[2018-04-25] MEDS: MULTIVITAMINS 1 EACH TAB PO SCH (21:05)
[2018-04-26 04:32] LABS: PLATELET COUNT 86 10^3/uL (150-400)
[2018-04-26] MEDS: CHOLECALCIFEROL VIT D3 1,000 UNITS TAB PO SCH (09:41)
[2018-04-26] MEDS: PRESERVISION AREDS2 FORMULA EYE VIT 1 EACH PO SCH (09:42)
[2018-04-26] MEDS: APIXABAN 2.5 MG TAB PO SCH (09:42)
[2018-04-26] MEDS: guaiFENesin 600 MG TAB.ER PO SCH (09:42)
[2018-04-26] MEDS: CARVEDILOL 25 MG TAB PO SCH (09:42)
[2018-04-26] MEDS ORDERED: TORSEMIDE 20 MG TAB PO SCH (10:00)
[2018-04-26 11:21] VITALS: BP 93/71
--- NOTE | 2018-04-26 12:09 | PDCARPN ---
Cardiology Progress Note Assessment/Plan: Assessment: 1. Acute on chronic systolic congestive heart failure 2. Peristant Atrial Fibrillation s/p EDIL DCCV yesterday 3. CAD with hx of PCI 4. Acute on chronic respiratory failure 5. Chronic renal insufficiency with Cr between 1.3 and 1.5 6. COPD 7. Viral Upper Respiratory Failure Plan: -Start his home diuretic of Torsemide 20 mg Q 3 days) -Continue Coreg 25 mg PO Bid -Continue Eliquis 2.5 mg po bid -check blood pressure at home twice daily -check daily weights, if up by 2 lb, take an additional torsemide -will not restart Entresto until patient has been seen by in follow-up -scheduled for follow-up with Dr. Rich in 2 weeks 04/25/18 10:51 04/26/18 12:07 Subjective: Mr. Zayas is feeling well this morning. He was scheduled for discharge yesterday but developed symptomatic hypotension with systolic blood pressure in the upper 70s. He received 250 cc of normal saline. This morning he is feeling well. His blood pressure is stable. He denies complaints of shortness of breath, dyspnea, PND, orthopnea. He feels ready to go home. He states he feels back to his baseline. BUN and creatinine have slightly decreased over the last 24 hr creatinine of 1.4. Reviewed/Discussed With: hospitalist Objective: Vital Signs (8 Hrs) Temp Pulse Resp BP Pulse Ox 04/26/18 11:17 36.2 C 89 18 93/71 L 91 L 04/26/18 08:00 36.9 C 86 18 121/71 H 97 04/26/18 04:40 36.4 C 95 16 125/97 H 98 Intake/Output (24 Hrs) 04/25/18 04/26/18 04/27/18 05:59 05:59 05:59 Intake Total 1765 1210 Output Total 1550 1075 Balance 215 135 Intake: Oral (ml) 1765 1010 IV Infused (ml) 200 Ns 1,000 ml @ 100 mls/hr 200 IV CONT OSBALDO Rx#: [id number] Output: Urine (ml) 1550 1075 Toilet 1350 200 Urinal 200 875 Other: Weight 75.3 kg 76.2 kg Intake Quantity Yes Sufficient Number of Voids Toilet 1 Urinal 1 Result Diagrams: 04/26/18 03:42 04/26/18 03:42 - Physical Exam Neurologic: AAOx3, CN II-XII grossly intact Psychiatric: cooperative, interactive, following commands ICD10 Worksheet Patient Problems: Problems Problem Status Onset Congestive heart failure Acute Chronic Disease Mgmt/Transitional Care Acute Pneumonia Acute Severe sepsis Acute
--- NOTE | 2018-04-26 13:37 | GDS ---
FINAL DIAGNOSES: 1. Atrial fibrillation with rapid ventricular response. 2. Bcwgf-wn-bqxxfwr systolic congestive heart failure. 3. Viral bronchitis. 4. Dcwwh-ln-lfrpjme respiratory failure. 5. Chronic kidney disease. 6. Coronary artery disease. 7. Chronic obstructive pulmonary disease. 8. Hypotension. CONSULTATIONS: Cardiology. PROCEDURES: DC cardioversion with EDIL on 04/24/2018, with temple of normal sinus rhythm. HOSPITAL COURSE: This is an 83-year-old man who presented with shortness of breath. He has a history notable for systolic CHF, followed by Dr. Rich. He has a BiV pacer in place. He has paroxysmal atrial fibrillation, was found to be in atrial fibrillation. When he is in atrial fibrillation, he loses the synchronicity of his BiV pacer and his ejection fraction drops from 35% down to 25%. Because of this, he underwent a EDIL cardioversion with temple of sinus rhythm. He was volume overloaded and was diuresed aggressively here as well. His carvedilol was increased to 25 mg twice a day with the hope of maintaining sinus rhythm. He became somewhat hypotensive with some dizziness after the aggressive diuresis. He received a small amount of fluid, his blood pressure came up nicely from 77/47 to 93/71, which is what it is at the time of discharge. He has followup with Dr. Rich on May 08, as well as followup with Dr. Dunlap on May 16. He will follow up with Dr. Rich for heart failure , Dr. Dunlap to consider an AV node ablation to allow his pacemaker to maintain synchronicity between his ventricles. I have discussed all this with him on the day of discharge. Additionally, he had human rhinovirus/enterovirus, which was likely contributing to his shortness of breath. This has improved throughout his stay. His renal function has been stable. His creatinine is 1.4 on the day of discharge. He is instructed to increase his carvedilol to 25 mg twice a day, stop Entresto until he sees Dr. Rich, continue his home torsemide dose of 20 mg oral every 3 days. BILLING: I spent more than 30 minutes on the day of discharge coordinating care. /[id number]/MODL MTDD
--- NOTE | 2018-04-26 13:48 | ASDISCHSUM ---
Discharge Information Plan Status:Home with No Needs Medically Cleared to Leave:04/26/2018 Discharge Date:04/26/2018 CM D/C Disposition:Home, Routine, Self-Care ADT D/C Disposition:Home, Routine, Self-Care Projected Discharge Date:04/26/2018 Transportation at D/C:Family Discharge Delay Reason: Follow-Up Date:04/26/2018 Discharge Slot: Final Diagnosis: Placement Information Patient Contact Information Contact Name:RONNIE Relationship: Address:[address] City:[place] Phone: [facility]/Zip Code:[place] [address] Email: Financial Information Financial Class:Medicare Primary Plan Desc:MEDICARE INPATIENT Primary Plan Number:[id number] Secondary Plan Desc:[employer]/JOHN SUPPLEMENT Secondary Plan Number:[id number] Assessment Information LACE LACE Length of stay for Answers: 4-6 days current admission Acuity / Level of Answers: Yes Care: Did the patient have an inpatient admission? Comorbidities - select Answers: Chronic pulmonary disease all that apply Congestive heart failure Coronary Artery Disease Previous myocardial infarction Other Notes: AFib; HLD; HTN # of Emergency department Answers: 1-2 visits in the last 6 months Social determinants Answers: History of substance abuse (ETOH, street drugs, prescription drugs, etc.) Score: 19 Date Signed: 04/26/2018 01:47 PM Electronically Signed By:Annalisa Romero RN [facility] Progress Note CM Note CM Note Notes: Pt admitted for respiratory distress due to acute rhinovirus on top of chronic CHF. Pt also has a pacer. Pt lives with in [place] independently and has no therapies ordered. Pt likely to d/c tomorrow independently. No CM needs noted at this time. D/C Plan: home independently with Date Signed: 04/22/2018 05:08 PM Electronically Signed By:Marni Manuel [facility] CM Progress Note CM Note CM Note Notes: Pts case discussed in morning rounds. PT has worked with pt and cleared him to d/c home with supportive . Pt is getting a cardioversion today. No other needs at this time. CM available for changes. Plan: Independent Date Signed: 04/24/2018 11:59 AM Electronically Signed By:BETI Balderrama Case Management Discharge Plan Note Case Management Discharge Discharge Order Complete? Answers: Yes Patient to Obtain Answers: Independently Medications Transportation Arranged Answers: Family/Friends Discharge Comments Notes: Pt to discharge independent with follow up as directed. Date Signed: 04/26/2018 01:46 PM Electronically Signed By:Annalisa Romero RN Intervention Information Intervention Type:*Incorrect Registration Date of Service:04/22/2018 09:39 AM Patient Type:Observation Staff Member:Crystal Hurtado Hours: Discipline: Severity: Comment: Intervention Type:*IM-Signed Date of Service:04/25/2018 02:45 PM Patient Type:Inpatient Staff Member:Ramonita Quiñonez Hours: Discipline: Severity: Comment:
== END 2018-04-26 14:59 | disposition home or self-care (01) | DRG 308 ==
LOC: F2W 04:45 → OBSVTOIN 06:04
PROVIDERS: ADMIT Family Medicine; ATTEND Family Medicine
DX: I48.0 Paroxysmal atrial fibrillation (principal); I50.23 Acute on chronic systolic (congestive) heart failure; J96.20 Acute and chronic respiratory failure, unspecified whether with hypoxia or hypercapnia; N17.9 Acute kidney failure, unspecified; J20.8 Acute bronchitis due to other specified organisms; N18.3 Chronic kidney disease, stage 3 (moderate); I25.10 Atherosclerotic heart disease of native coronary artery without angina pectoris; J44.9 Chronic obstructive pulmonary disease, unspecified; I95.9 Hypotension, unspecified; E78.5 Hyperlipidemia, unspecified; D63.8 Anemia in other chronic diseases classified elsewhere; Z23 Encounter for immunization; Z79.01 Long term (current) use of anticoagulants; Z95.5 Presence of coronary angioplasty implant and graft; Z87.891 Personal history of nicotine dependence; Z95.810 Presence of automatic (implantable) cardiac defibrillator
CPT/HCPCS: 84484-PO; 97116-GP; 97161-GP; G0008; G8978-GP-CH; G8978-GP-CI; G8979-GP-CH; G8980-GP-CH; J0461; J1940; J2704; J3475

== ENCOUNTER → 2018-05-16 | Outpatient (CLI) | payer OTHER, MEDICARE | LOC: BHFA 13:15 | PROVIDERS: ATTEND Internal Medicine Cardiovascular Disease | DX: I48.91 Unspecified atrial fibrillation (principal) ==

== ENCOUNTER 2018-06-11 08:27 | Observation (INO) | payer OTHER, MEDICARE ==
[2018-06-11] MEDS ORDERED: NS 1,000 ML IV ONE (08:32)
[2018-06-11 09:00] LABS: PLATELET COUNT 124 10^3/uL (150-400)
[2018-06-11 09:10] LABS: INR 1.09 (0.83-1.16); PROTIME(PATIENT) 14.3 SEC (12.0-15.0)
--- NOTE | 2018-06-11 10:22 | PDGENHP ---
History & Physical Chief Complaint: Mr. Zayas presents today for AV node ablation History of Present Illness: Atrial fibrillation with RVR and likely loss of biventricular pacing. AV node ablation today. Patient has been off Eliquis for 48hours Relevant Physical Exam: S1S2 RRR, respiratory exam CTA, A&O x3. Cardiorespiratory Assessment: Device interrogation of bi-v AICD demonstrates underlying rhythm 40bpm. Proceed with AV node ablation today.
[2018-06-11] MEDS ORDERED: HEPARIN 10,000 UNIT/10 ML MDV (1,000 UNIT/ML) ONE (10:28)
[2018-06-11] MEDS ORDERED: BUPIVACAINE 0.75% 10 ML SDV ONE (10:28)
[2018-06-11] MEDS ORDERED: LIDOCAINE 1% 300 MG/30 ML SDV ONE (10:28)
--- NOTE | 2018-06-11 10:35 | PDANEPAE ---
ANE History of Present Illness a-fib with BiV s/f AV node resection ANE Past Medical History - Cardiovascular History Hx Hypertension: Yes Hx Arrhythmias: Yes Hx Coronary Artery / Peripheral Vascular Disease: Yes Hx CHF / Valvular Disease: Yes - Pulmonary History Hx COPD: Yes Hx Asthma/Reactive Airway Disease: No Hx Oxygen in Use at Home: Yes Hx Sleep Apnea: Yes - Endocrine History Hx Diabetes: No - Renal History Hx Renal Disorders: Yes - Liver History Hx Hepatic Disorders: No - Chronic Pain History Chronic Pain: No ANE Review of Systems Review of Systems: - Exercise capacity METS (RN): 3 METS ANE Patient History - Allergies Allergies/Adverse Reactions: No Allergies [NKDA] Allergy (Verified 10/22/16 14:14) - Home Medications Home medications: home medication list seen and reviewed Home Medications: Pravastatin Sodium 20 mg PO HS 03/24/13 [Last Taken 04/21/18] Apixaban [Eliquis] 2.5 mg PO BID 12/12/16 [Last Taken 04/21/18 21:00] Albuterol [Proventil Inhaler HFA (*)] 1 - 2 puffs IH DAILY PRN 01/02/17 [Last Taken Unknown] Cholecalciferol Vit D3 [Vitamin D3 (*)] 1,000 units PO HS 01/02/17 [Last Taken 04/21/18] Multivitamins [Multivitamin (*)] 1 each PO HS 01/02/17 [Last Taken 04/21/18] rOPINIRole HCL [Requip 1mg (*)] 1 mg PO HS PRN 12/23/17 [Last Taken 04/21/18] C/E/Zn/Cu/OM3/DHA/EPA/LUT/ZEAX [Preservision Areds 2 Softgel] 1 each PO DAILY [Last Taken 04/21/18] Sacubitril/Valsartan 24/26Mg [Entresto 24 mg/26 mg (RX)] 1 ea PO BID 06/04/18 [ Last Taken Unknown] - NPO status NPO Status: no food or drink >8 hours - Anes Hx Anes Hx: no prior problems - Smoking Hx Smoking Status: Former smoker - Alcohol Use Alcohol Use: None - Family Anes Hx Family Anes Hx: none ANE Labs/Vital Signs - Labs Result Diagrams: 06/11/18 08:44 06/11/18 08:44 - Vital Signs Height: 180 cm Weight: 77.6 kg ANE Physical Exam - Airway Neck exam: decreased ROM Mouth exam: poor dentition - Pulmonary Pulmonary: no respiratory distress - Cardiovascular Cardiovascular: regular rate and rhythym - ASA Status ASA Status: III ANE Anesthesia Plan Anesthesia Plan: GA with mask, MAC Total IV Anesthesia: Yes
[2018-06-11] MEDS ORDERED: fentaNYL 100 MCG/2 ML INJ ONE (10:47)
[2018-06-11] MEDS ORDERED: PROPOFOL/EMULSION 500 MG/50 ML BOTTLE IV ONE (10:47)
[2018-06-11] MEDS ORDERED: REMIFENTANIL HCL 1 MG VIAL ONE (10:48)
--- NOTE | 2018-06-11 12:22 | EPPROC ---
Electrophysiology Procedure Note: CATHETER MEDIATED ABLATION OF THE AV JUNCTION Procedures performed: [id number] AV node ablation Fluoroscopy INDICATION: Atrial fibrillation, CHF BiV ICD in place Catheters & Anesthesia: The patient arrived in the Electrophysiology Laboratory in the fasting state. Sedation was administered by Dr. Ilsa Whitlock The right groin and left groin area were prepped and draped in the usual sterile manner. Appropriate non-invasive blood pressure, pulse oximetry and end-tidal CO2 monitoring was established. All catheters were placed percutaneously using the modified Seldinger technique and advanced into position under fluoroscopic guidance). At baseline the patient was noted to be in AF with a mean ventricular rate of 45 bpm. Previously he has had AF with RVR and worsening of CHF. A #7 [place] deflectable quadrapolar electrode catheter (2mm-5mm-2mm spacing) with 4 mm tip electrode was advanced to the right atrium. A total of 3 RF applications were delivered. RF#1 was applied in the area of the compact AV node. RF#2 was applied to the same area as RF#1. RF#3 was applied to the area of the fast AV hodan pathway. RF#4 was applied to the right midseptal tricuspid annulus. There was complete AV block after RF1 Cessation of pacing revealed that there was no escape rhythm while pacing at 30 ppm. There was steam pop after RF 1, echo showed no pericardial effusion, patient remained HD stable during the procedure and in CVC. Pacemaker implantation was done previously. The pacemaker was programmed to a lower rate of 80 ppm to reduce the risk of sudden associated with torsades de pointes. The lower rate will gradually be reduced to 60 ppm after 1 month . Fluoroscopically pacemaker lead positions were unchanged after procedure Pacemaker thresholds and impedances were unchanged after the procedure The catheters were removed. The patient was transferred to the cardiovascular holding area in stable condition. Vascular access sheaths will be removed in the holding area after 30 min of wait time. There were no apparent complications. CONCLUSIONS: 1. Atrial fibrillation with rapid ventricular response. 2. Successful ablation of the AV junction producing complete AV block. 3. No escape rhythm while pacing at 30 ppm 4. No complications. Patient Problems: Problems Problem Status Onset Chronic Disease Mgmt/Transitional Care Acute Congestive heart failure Acute Pneumonia Acute Severe sepsis Acute
[2018-06-11] MEDS: CARVEDILOL 25 MG TAB PO SCH (18:42)
[2018-06-11] MEDS: SACUBITRIL/VALSARTAN 24/26MG 1 EA TAB PO SCH (20:31)
[2018-06-11] MEDS: APIXABAN 2.5 MG TAB PO SCH (20:31)
[2018-06-11] MEDS ORDERED: PRAVASTATIN SODIUM 20 MG TAB PO SCH (21:00)
--- NOTE | 2018-06-11 22:10 | CPEKG ---
Test Reason : OPEN Blood Pressure : / mmHG Vent. Rate : 071 BPM Atrial Rate : 071 BPM P-R Int : 215 ms QRS Dur : 141 ms QT Int : 471 ms P-R-T Axes : 053 267 073 degrees QTc Int : 512 ms Atrial-sensed ventricular-paced rhythm with unusual precordial activation Confirmed by Daniel Bell ([id number]) on 06/11/2018 10:09:34 PM Referred By: Confirmed By:Daniel Bell
--- NOTE | 2018-06-11 22:59 | CPEKG ---
Test Reason : OPEN Blood Pressure : / mmHG Vent. Rate : 092 BPM Atrial Rate : 137 BPM P-R Int : 190 ms QRS Dur : 105 ms QT Int : 368 ms P-R-T Axes : 230 -64 180 degrees QTc Int : 456 ms A-V dual-paced complexes w/ some inhibition occasional PVC Confirmed by Daniel Bell ([id number]) on 06/11/2018 10:58:47 PM Referred By: Confirmed By:Daniel Bell
[2018-06-12 04:22] LABS: PLATELET COUNT 96 10^3/uL (150-400)
[2018-06-12 07:20] VITALS: BP 111/58
[2018-06-12] MEDS: APIXABAN 2.5 MG TAB PO SCH (08:03)
[2018-06-12] MEDS: SACUBITRIL/VALSARTAN 24/26MG 1 EA TAB PO SCH (08:03)
[2018-06-12] MEDS: CARVEDILOL 25 MG TAB PO SCH (08:04)
--- NOTE | 2018-06-12 11:41 | GDS ---
ADMISSION DIAGNOSES: Ischemic cardiomyopathy, atrial fibrillation, and bi- ventricular AICD. DISCHARGE DIAGNOSES: Ischemic cardiomyopathy, atrial fibrillation, and bi- ventricular AICD status post AV node ablation. HOSPITAL COURSE: Patient presented yesterday, 06/11/2018, for AV node ablation in the setting of worsening heart failure due to atrial fibrillation with rapid ventricular rates and likely loss of bi-V pacing during these episodes. Patient has a history of ischemic cardiomyopathy, coronary artery disease status post PCI, renal insufficiency, and moderate MR. Successful ablation of his AV node yesterday with Dr. Dunlap producing complete heart block. There was no escape rhythm noted while pacing at 30 beats per minute during the case following AV node ablation. There was a steam pop after RF1. Intraprocedure echo after steam pop demonstrated no pericardial effusion, and patient remained hemodynamically stable. It does appear that conduction across the AV node has returned overnight. It is likely that initial AV block was related to stunning from steam pop. This was confirmed via device interrogation with an underlying rate roughly 55bpm. Patient denies any lightheadedness, dizziness, chest discomfort, palpitations, syncope, near syncope, or other concerning symptoms. He is stable for discharge today. PHYSICAL EXAMINATION: GENERAL: Patient is well appearing without any specific concerns. He is ambulating independently without issue. VITAL SIGNS: Blood pressure 111/58, heart rate 71, SP02 97% on room air. CARDIOVASCULAR: Irregular rate and rhythm. Telemetry demonstrates frequent PVCs and/or [place] conduction across the AV node. RESPIRATORY: Clear to auscultation. EXTREMITIES: Within normal limits. Purse-string suture removed DISCHARGE PLAN: 1. The patient will follow up in clinic in 4 weeks to determine whether AV block has recurred secondary to scarring at the ablation site post procedure. If AV conduction persists we will plan for AV node re-ablation in mid to late July. 2. Groin precautions reviewed in detail with patient. 3. Patient will follow up sooner with any new or concerning symptoms. 4. He has been re-started on his Eliquis for anticoagulation. /[id number]/MODL MTDD
--- NOTE | 2018-06-12 13:41 | ECHO ---
[email or web address] [address] [address] Main: [phone] Fax: Transthoracic Echocardiogram Name: DRE BENITES MR#: [id number] Study Date: 06/12/2018 Study Time: 08:44 AM Date of : 1935 Age: 83 year(s) Height: 180.3 cm (71 in.) Weight: 77.57 kg (171 lb.) BSA: 1.97 m2 Gender: Male Examination: Echo Indication: F/U Post EP Image Quality: Adequate Contrast: Requested by: Mally Montalvo BP: 111 mmHg/56 mmHg Heart Rate: Rhythm: Indication: F/U Post EP Procedure Staff Baggage Inspector: Elba Lomeli [facility] Reading Physician: Aemrico Dunlap MD Requesting Provider: Conclusions: Moderately to severely reduced systolic function. EF is 23 %. Inferolateral and inferior wall akinesis with remaining del cid hypokinetic. Unable to assess diastolic dysfunction. Mildly reduced RV function. There is an ICD lead noted in the right ventricle. The left atrium is severely dilated. The right atrium is moderately to severely dilated. Mild mitral annular calcification. Moderate mitral valve regurgitation is present. Moderate tricuspid regurgitation is present. The pulmonary artery pressure is moderately to severely increased. Trivial anterior pericardial effusion. Measurements: Chambers Valvular Assessment AV/MV Valvular Assessment TV/PV Normal Normal Normal Name Value Range Name Value Range Name Value Range Ao Loretta (MM): 3.1 cm (2.2 cm-3.7 AV Vmax: 0.77 m/s (1 m/s-1.7 TR Vmax: 3.70 mm/s ( - ) cm) m/s) TR PGmax: 55 mmHg ( - ) IVSd (2D): 1.3 cm (0.6 cm-1.1 AV maxP mmHg ( - ) syst. PAP: 60 mmHg ( - ) cm) LVOT Vmax: 0.55 m/s (0.7 m/s-1.1 PV Vmax: 0.62 m/s (0.6 m/s-0.9 LVDd (2D): 5.8 cm (4.2 cm-5.9 m/s) m/s) cm) HILLARY (Vmax): 2.5 cm2 ( - ) PV PGmax: 2 mmHg ( - ) LVDs (2D): 5.3 cm (2.1 cm-4 MV E Vmax: 0.76 m/s ( - ) cm) LVPWd (2D): 0.9 cm (0.6 cm-1 cm) LVOTd 2.1 cm 2.1 cm mm LVEF (BP): 23 % (>=55 %) Patient: DRE BENITES Study Date: 06/12/2018 Page 1 of 2 08:44 AM RVDd(2D): 4.8 cm (1.9 cm-3.8 cmmm) Continued Measurements: Chambers Valvular Assessment AV/MV Valvular Assessment TV/PV Name Value Name Value Name Value LADs: 5.0 cm MV DecTime: 159 m/s CVP (est.): 5 mmHg LADs Lon.6 cm MV E' Septal: 0.07 m/s LA Area: 38.9 cm2 MV E/E' Septal: 10.90 LA Volume: 179 ml MV E' Lateral: 0.06 m/s LA Volume Index: 90.9 ml/m2 MV E/E' Lateral: 11.80 TAPSE: 1.5 cm MV E' Mean: 0.06 m/s RA Area: 26.8 cm2 MV E/E' Mean: 11.69 MR Vena Contracta: 0.5 cm Additional Vessels Name Value Ao Ascendin.4 cm Findings: Left Ventricle: Left ventricle upper limits of normal. Mild concentric LV hypertrophy. Moderately to severely reduced systolic function. EF is 23 %. Inferolateral and inferior wall akinesis with remaining del cid hypokinetic. Unable to assess diastolic dysfunction. Right Ventricle: Mildly to moderately dilated right ventricle. Mildly reduced RV function. There is an ICD lead noted in the right ventricle. Left Atrium: The left atrium is severely dilated. Right Atrium: The right atrium is moderately to severely dilated. Mitral Valve: There is mild thickening of the mitral valve leaflets. Mild mitral annular calcification. Moderate mitral valve regurgitation is present. No mitral stenosis is present. Aortic Valve: The aortic valve is tri-leaflet and functions normally. Trivial aortic valve regurgitation. No aortic valve stenosis is present. Tricuspid Valve: The tricuspid valve is normal in appearance and function. Moderate tricuspid regurgitation is present. Right ventricular systolic pressure measures 60mmHg. The pulmonary artery pressure is moderately to severely increased. Pulmonic Valve: The pulmonic valve is normal in appearance. Mild pulmonic valve regurgitation is noted. Aorta: Normal size aortic root measuring 3.1 cm. Normal size ascending aorta measuring 3.4 cm. IVC: The IVC is not visualized. Pericardium: Trivial anterior pericardial effusion. (No Signature Object) Patient: DRE BENITES Study Date: 06/12/2018 Page 2 of 2 08:44 AM [id number]
--- NOTE | 2018-06-12 20:53 | CPEKG ---
Test Reason : OPEN Blood Pressure : / mmHG Vent. Rate : 070 BPM Atrial Rate : 079 BPM P-R Int : 124 ms QRS Dur : 157 ms QT Int : 459 ms P-R-T Axes : 091 246 074 degrees QTc Int : 496 ms atrial-sensed ventricular-paced complexes predominates with occasional appropriate sensing of atrial activity Confirmed by Daniel Bell ([id number]) on 06/12/2018 8:52:50 PM Referred By: Confirmed By:Daniel Bell
== END 2018-06-12 13:15 | disposition home or self-care (01) ==
LOC: FCATH 08:27 → F2W 11:21
PROVIDERS: ADMIT Registered Nurse; ATTEND Internal Medicine Cardiovascular Disease
DX: I25.5 Ischemic cardiomyopathy (principal); I48.91 Unspecified atrial fibrillation
CPT/HCPCS: 93005; 93306; 93619; 93650; C1733; J1644; J2704; J3010

== ENCOUNTER 2018-07-09 11:56 | Observation (INO) | payer OTHER, MEDICARE ==
[2018-07-09] MEDS ORDERED: NS 1,000 ML IV ONE (12:10)
[2018-07-09 12:52] LABS: PLATELET COUNT 108 10^3/uL (150-400)
[2018-07-09 13:02] LABS: INR 1.19 (0.83-1.16); PROTIME(PATIENT) 15.3 SEC (12.0-15.0)
[2018-07-09] MEDS ORDERED: LIDOCAINE 1% 300 MG/30 ML SDV ONE (14:43)
[2018-07-09] MEDS ORDERED: HEPARIN 10,000 UNIT/10 ML MDV (1,000 UNIT/ML) ONE (14:43)
[2018-07-09] MEDS ORDERED: BUPIVACAINE 0.75% 10 ML SDV ONE (14:44)
--- NOTE | 2018-07-09 14:54 | PDANEPAE ---
ANE History of Present Illness 83 yo for AV node ablation ANE Past Medical History - Cardiovascular History Hx Hypertension: Yes Hx Arrhythmias: Yes Hx Coronary Artery / Peripheral Vascular Disease: Yes Hx CHF / Valvular Disease: Yes - Pulmonary History Hx COPD: Yes Hx Asthma/Reactive Airway Disease: No Hx Oxygen in Use at Home: Yes Hx Sleep Apnea: Yes - Endocrine History Hx Diabetes: No - Renal History Hx Renal Disorders: Yes - Liver History Hx Hepatic Disorders: No - Chronic Pain History Chronic Pain: No ANE Review of Systems Review of Systems: - Exercise capacity METS (RN): 3 METS ANE Patient History - Allergies Allergies/Adverse Reactions: No Allergies [NKDA] Allergy (Verified 10/22/16 14:14) - Home Medications Home medications: home medication list seen and reviewed Home Medications: Pravastatin Sodium 20 mg PO HS 03/24/13 [Last Taken 04/21/18] Apixaban [Eliquis] 2.5 mg PO BID 12/12/16 [Last Taken 04/21/18 21:00] Cholecalciferol Vit D3 [Vitamin D3 (*)] 1,000 units PO HS 01/02/17 [Last Taken 04/21/18] Multivitamins [Multivitamin (*)] 1 each PO HS 01/02/17 [Last Taken 04/21/18] rOPINIRole HCL [Requip 1mg (*)] 1 mg PO HS PRN 12/23/17 [Last Taken 04/21/18] C/E/Zn/Cu/OM3/DHA/EPA/LUT/ZEAX [Preservision Areds 2 Softgel] 1 each PO DAILY [Last Taken 04/21/18] Sacubitril/Valsartan 24/26Mg [Entresto 24 mg/26 mg (RX)] 1 ea PO BID 06/04/18 [ Last Taken Unknown] Torsemide [Demadex] 20 mg PO DAILY10 PRN 07/04/18 [Last Taken Unknown] - NPO status NPO Status: no food or drink >8 hours - Anes Hx Anes Hx: no prior problems - Smoking Hx Smoking Status: Former smoker ANE Labs/Vital Signs - Labs Result Diagrams: 07/09/18 12:25 07/09/18 12:25 - Vital Signs Height: 5 ft 11 in Weight: 78.925 kg ANE Physical Exam - Airway Neck exam: FROM Mallampati Score: Class 2 Mouth exam: normal dental/mouth exam - Pulmonary Pulmonary: no respiratory distress - Cardiovascular Cardiovascular: regular rate and rhythym - ASA Status ASA Status: III ANE Anesthesia Plan Anesthesia Plan: MAC
[2018-07-09] MEDS ORDERED: PROPOFOL/EMULSION 500 MG/50 ML BOTTLE IV ONE (14:58)
[2018-07-09] MEDS ORDERED: fentaNYL 100 MCG/2 ML INJ ONE (14:58)
--- NOTE | 2018-07-09 14:59 | PDGENHP ---
History & Physical Chief Complaint: AFIB Relevant Physical Exam: s1s2 irreg cta ao3 Cardiorespiratory Assessment: for AVJ ablation
[2018-07-09] MEDS ORDERED: ATROPINE SULFATE 1 MG/10 ML SYR ONE (15:44)
[2018-07-09] MEDS ORDERED: TORSEMIDE 20 MG TAB PO PRN (16:05)
[2018-07-09] MEDS ORDERED: NALOXONE HCL 0.4 MG/ML INJ IVP PRN (16:28)
--- NOTE | 2018-07-09 16:42 | CPEKG ---
Test Reason : OPEN Blood Pressure : / mmHG Vent. Rate : 099 BPM Atrial Rate : 000 BPM P-R Int : 000 ms QRS Dur : 137 ms QT Int : 404 ms P-R-T Axes : 000 -46 151 degrees QTc Int : 519 ms V-paced complexes Confirmed by Devon Carmona ([id number]) on 07/09/2018 4:42:04 PM Referred By: Confirmed By:Devon Carmona
--- NOTE | 2018-07-09 18:48 | EPPROC ---
Electrophysiology Procedure Note: CATHETER MEDIATED ABLATION OF THE AV JUNCTION Procedures performed: [id number] AV node ablation Fluoroscopy INDICATION: Atrial fibrillation, unable to rate control despite maximally tolerated medical therapy Prior failed AV node ablation (steam pop during case, return of AV node conduction day after procedure) Catheters & Anesthesia: The patient arrived in the Electrophysiology Laboratory in the fasting state. Sedation was administered by Dr. Lara. The right groin and left groin area were prepped and draped in the usual sterile manner. Appropriate non-invasive blood pressure, pulse oximetry and end-tidal CO2 monitoring was established. All catheters were placed percutaneously using the modified Seldinger technique and advanced into position under fluoroscopic guidance). At baseline the patient was noted to be in AFIB with a mean ventricular rate of 40-80 bpm. A #7 Lithuanian deflectable quadrapolar electrode catheter (2mm-5mm-2mm spacing) with 3.5 mm irrigatedtip electrode was advanced to the right atrium. A total of 5 RF applications were delivered. RF#1 was applied in the area of the compact AV node. RF#2 was applied to the same area as RF#1. RF#3 was applied to the area of the fast AV hodan pathway. RF#4 was applied to the right midseptal tricuspid annulus. There was complete AV block after RF1 Cessation of pacing revealed that there was either asystole (for up to 15 s) or ventricular escape rhythm at 29 bpm. Atropine and glycopyrrolate was given prior to pausing ventricular pacing. Fluoroscopically ICD lead positions were unchanged after procedure ICD thresholds and impedances were unchanged after the procedure The catheters were removed. The patient was transferred to the cardiovascular holding area in stable condition. Vascular access sheaths were removed in the holding area. There were no apparent complications. CONCLUSIONS: 1. Atrial fibrillation with rapid ventricular response. 2. Successful ablation of the AV junction producing complete AV block. 3. Intermittent ventricular escape rhythm at 29 bpm. 4. No complications. Patient Problems: Problems Problem Status Onset Ischemic cardiomyopathy Acute Chronic Disease Mgmt/Transitional Care Acute Congestive heart failure Acute Pneumonia Acute Severe sepsis Acute
[2018-07-09] MEDS: CARVEDILOL 25 MG TAB PO SCH (18:57)
[2018-07-09] MEDS: PRAVASTATIN SODIUM 20 MG TAB PO SCH (20:41)
[2018-07-09] MEDS: APIXABAN 2.5 MG TAB PO SCH (20:41)
[2018-07-09] MEDS: MULTIVITAMINS 1 EACH TAB PO SCH (20:41)
[2018-07-09] MEDS: SACUBITRIL/VALSARTAN 24/26MG 1 EA TAB PO SCH (20:41)
[2018-07-09] MEDS: CHOLECALCIFEROL VIT D3 1,000 UNITS TAB PO SCH (20:41)
[2018-07-10 05:03] LABS: PLATELET COUNT 79 10^3/uL (150-400)
[2018-07-10] MEDS: CARVEDILOL 25 MG TAB PO SCH ×2 (08:48→17:48)
[2018-07-10] MEDS: SACUBITRIL/VALSARTAN 24/26MG 1 EA TAB PO SCH ×2 (08:48→21:25)
[2018-07-10] MEDS: APIXABAN 2.5 MG TAB PO SCH ×2 (08:48→21:25)
[2018-07-10] MEDS: PRESERVISION AREDS2 FORMULA EYE VIT 1 EACH PO SCH (08:48)
--- NOTE | 2018-07-10 09:51 | CPEKG ---
Test Reason : OPEN Blood Pressure : / mmHG Vent. Rate : 084 BPM Atrial Rate : 000 BPM P-R Int : 053 ms QRS Dur : 146 ms QT Int : 440 ms P-R-T Axes : 235 261 077 degrees QTc Int : 521 ms Ventricular-paced complexes Confirmed by Sigifredo Mccauley ([id number]) on 07/10/2018 9:50:31 AM Referred By: Confirmed By:Sigifredo Mccauley
--- NOTE | 2018-07-10 10:04 | CPEKG ---
Test Reason : OPEN Blood Pressure : / mmHG Vent. Rate : 083 BPM Atrial Rate : 156 BPM P-R Int : 202 ms QRS Dur : 161 ms QT Int : 483 ms P-R-T Axes : 000 -78 082 degrees QTc Int : 568 ms Afib/flut and V-paced complexes Ventricular trigeminy Confirmed by Sigifredo Mccauley ([id number]) on 07/10/2018 10:04:07 AM Referred By: Confirmed By:Sigifredo Mccauley
[2018-07-10] MEDS ORDERED: FUROSEMIDE 40 MG/4 ML VIAL IVP ONE (11:25)
--- NOTE | 2018-07-10 13:08 | ECHO ---
[email or web address] [address] [address] Main: [phone] Fax: Transthoracic Echocardiogram Name: DRE BENITES MR#: [id number] Study Date: 07/10/2018 Study Time: 08:19 AM Date of : 1935 Age: 83 year(s) Height: 180.3 cm (71 in.) Weight: 78.93 kg (174 lb.) BSA: 1.99 m2 Gender: Male Examination: Echo Indication: F/U Post EP Study Image Quality: Adequate Contrast: Requested by: Mally Montalvo BP: 120 mmHg/72 mmHg Heart Rate: Rhythm: Indication: F/U Post EP Study Procedure Staff Utility Arborist: Pallavi Rubio RDCS Reading Physician: Sigifredo Mccauley MD Requesting Provider: Conclusions: Left ventricle upper limits of normal. Mild concentric LV hypertrophy. Severely reduced systolic LV function. EF is 26 %. There is paradoxic septal motion suggestive of bundle branch block, paced cardiac rhythm, or prior cardiac surgery. Normal size right ventricle. Mildly reduced RV function. There is a pacemaker lead noted in the right ventricle. The left atrium is severely dilated. The right atrium is moderately to severely dilated. Mild mitral valve leaflet calcification is present. Moderate mitral valve regurgitation is present. The aortic valve is tri-leaflet. Mild aortic valve regurgitation is present. Moderate tricuspid regurgitation is present. Right ventricular systolic pressure measures 44mmHg. There is no pulmonic regurgitation seen. Normal size ascending aorta measuring 2.8 cm. The IVC is mildly dilated. There is a pleural effusion present. In comparison to prior echocardiogram from 06-12-18 - there are similar findings noted (similar LVEF MR and TR) Measurements: Chambers Valvular Assessment AV/MV Valvular Assessment TV/PV Normal Normal Normal Name Value Range Name Value Range Name Value Range TR Vmax: 3.13 mm/s ( - ) Patient: DRE BENITES Study Date: 07/10/2018 Page 1 of 3 08:19 AM Ao Loretta (2D): 3.1 cm (1.4 cm-2.6 AV Vmax: 0.77 m/s (1 m/s-1.7 TR PGmax: 39 mmHg ( - ) cm) m/s) syst. PAP: 44 mmHg ( - ) IVSd (2D): 1.2 cm (0.6 cm-1.1 AV maxP mmHg ( - ) PV Vmax: 0.69 m/s (0.6 m/s-0.9 cm) AV meanP mmHg ( - ) m/s) LVDd (2D): 5.7 cm (4.2 cm-5.9 HILLARY (VTI): 2.1 cm ( - ) PV PGmax: 2 mmHg ( - ) cm) MV E Vmax: 0.72 m/s ( - ) LVDs (2D): 4.2 cm (2.1 cm-4 MV PHT: 0.035 s ( - ) cm) MVA (PHT): 6.3 s ( - ) LVPWd (2D): 1.1 cm (0.6 cm-1 cm) LVOTd 2.0 cm 2.0 cm mm LVEF (BP): 26 % (>=55 %) RVDd(2D): 3.8 cm (1.9 cm-3.8 cmmm) Continued Measurements: Chambers Valvular Assessment AV/MV Valvular Assessment TV/PV Name Value Name Value Name Value LADs: 5.0 cm MV DecTime: 148 m/s CVP (est.): 5 mmHg LADs Lon.3 cm MR ERO: 0.470 cm2 LA Area: 34.6 cm2 MR PISA radius: 10 mm LA Volume: 151 ml MR Reg. Volume: 78 ml LA Volume Index: 75.9 ml/m2 RA Area: 36.8 cm2 Additional Vessels Name Value Ao Ascendin.8 cm Inferior Vena Cava: 2.3 cm Findings: Left Ventricle: Left ventricle upper limits of normal. Mild concentric LV hypertrophy. Severely reduced systolic LV function. EF is 26 %. There is paradoxic septal motion suggestive of bundle branch block, paced cardiac rhythm, or prior cardiac surgery. Unable to assess diastolic dysfunction. Right Ventricle: Normal size right ventricle. Mildly reduced RV function. There is a pacemaker lead noted in the right ventricle. Left Atrium: The left atrium is severely dilated. Right Atrium: The right atrium is moderately to severely dilated. Mitral Valve: The mitral valve is normal in appearance and function. Mild mitral valve leaflet calcification is present. Moderate mitral valve regurgitation is present. No mitral stenosis is present. Aortic Valve: The aortic valve is tri-leaflet. Mild aortic valve regurgitation is present. No aortic valve stenosis is present. Tricuspid Valve: The tricuspid valve is normal in appearance and function. Moderate tricuspid regurgitation is present. Right ventricular systolic pressure measures 44mmHg. Pulmonic Valve: The pulmonic valve is normal in appearance and function. There is no pulmonic regurgitation seen. Aorta: The aorta is normal. Normal size aortic root measuring 3.1 cm. Normal size ascending aorta measuring 2.8 cm. IVC: The IVC is mildly dilated. Pericardium: Patient: DRE BENITES Study Date: 07/10/2018 Page 2 of 3 08:19 AM No pericardial effusion. There is pericardial fat. There is a pleural effusion present. (No Signature Object) Patient: DRE BENITES Study Date: 07/10/2018 Page 3 of 3 08:19 AM [id number]
--- NOTE | 2018-07-10 14:18 | ASMTCMCOM ---
CM Note CM Note Notes: 07/10/2018 Case Management Note Pt admitted s/p AV node reablation. Met w/pt to discuss discharge needs. Pt reports planning to attend cardiac outpatient rehab on Saturday. There are no identified case management discharge needs. Pt lives with his independently in his own home. Both still drive. munitions handler supervisor is Dr. Zaragoza. Case Management d/c poc: independent with cardiac outpatient rehab. Case Management available if needs change. Date Signed: 07/10/2018 02:18 PM Electronically Signed By:Annalisa Romero RN
--- NOTE | 2018-07-10 18:15 | PDCARPN ---
<Mally Montalvo - Last Filed: 07/10/18 18:10> Cardiology Progress Note Chief Complaint: s/p AV node ablation Assessment/Plan: Assessment: 1. Atrial fibrillation: s/p successful AV node ablation 07/09/2018. He continues Eliquis 2.5mg BID for anticoagulation. Device interrogation this morning demonstrated no underlying conduction. 2. Acute on chronic CHF: +BLE edema and cough. Pleural effusion noted on echo today, echo was otherwise stable with LVEF 26%, mildly reduced RV function, biatrial enlargement, moderate MR, mild AI, moderate TR, and RVSP 44mmHg. Lasix 40mg IVP administered x1 today, he is diuresing well. 3. Ischemic cardiomyopathy: BiV AICD Plan: 1. Lasix 40mg IVP, CXR, BMP, and BNP tomorrow morning 2. Anticipate discharge home tomorrow 07/10/18 18:15 Subjective: +dyspnea this morning, improved this afternoon Reviewed/Discussed With: multidisciplinary team Time Spent with Patient: greater than 35 minutes Time Spent with Patient: Greater than 35 minutes spent on this patients care, greater than 50% of time spent counseling, educating, and coordinating care regarding the above mentioned plan. Objective: Vital Signs (8 Hrs) Temp Pulse Resp BP Pulse Ox 07/10/18 15:38 36.7 C 85 18 122/74 H 94 07/10/18 11:49 36.8 C 84 20 111/68 90 L Intake/Output (24 Hrs) 07/09/18 07/10/18 07/11/18 05:59 05:59 05:59 Intake Total 400 1090 Output Total 1500 Balance 400 -410 Intake: Oral (ml) 400 1090 Output: Urine (ml) 1500 Toilet 250 Urinal 1250 Other: Weight 78.925 kg Number of Voids Toilet 1 Result Diagrams: 07/10/18 04:10 07/10/18 04:10 Cardiac Labs: Cardiac Lab Results (72 Hrs) 07/10/18 04:10 Troponin I 0.174 H - Physical Exam Constitutional: WDWN, no apparent distress Ears, Nose, Mouth, Throat: moist mucous membranes, no oral ulcers, no thrush Cardiovascular: regular rate and rhythm, no rubs, no gallops, other (pitting BLE edema) Neurologic: AAOx3, CN II-XII grossly intact Psychiatric: cooperative, interactive, following commands, not anxious ICD10 Worksheet Patient Problems: Problems Problem Status Onset Chronic Disease Mgmt/Transitional Care Acute Congestive heart failure Acute Ischemic cardiomyopathy Acute Pneumonia Acute Severe sepsis Acute <Americo Dunlap - Last Filed: 07/10/18 19:41> Cardiology Progress Note Assessment/Plan: Assessment: Addendum Americo Dunlap MD -patient seen and examined, case discussed with Mally Montalvo NP. I have performed all relevant aspects of history, physical exam and review of systems. Plan: 07/10/18 19:41 Objective: Vital Signs (8 Hrs) Temp Pulse Resp BP Pulse Ox 07/10/18 15:38 36.7 C 85 18 122/74 H 94 07/10/18 11:49 36.8 C 84 20 111/68 90 L Intake/Output (24 Hrs) 07/09/18 07/10/18 07/11/18 11:59 11:59 11:59 Intake Total 400 1090 Output Total 1500 Balance 400 -410 Intake: Oral (ml) 400 1090 Output: Urine (ml) 1500 Toilet 250 Urinal 1250 Other: Weight 78.925 kg Number of Voids Toilet 1 Result Diagrams: 07/10/18 04:10 07/10/18 04:10 Cardiac Labs: Cardiac Lab Results (72 Hrs) 07/10/18 04:10 Troponin I 0.174 H
[2018-07-10] MEDS: CHOLECALCIFEROL VIT D3 1,000 UNITS TAB PO SCH (21:25)
[2018-07-10] MEDS: PRAVASTATIN SODIUM 20 MG TAB PO SCH (21:25)
[2018-07-10] MEDS: MULTIVITAMINS 1 EACH TAB PO SCH (21:25)
[2018-07-11 04:29] LABS: PLATELET COUNT 81 10^3/uL (150-400)
[2018-07-11] MEDS ORDERED: FUROSEMIDE 40 MG/4 ML VIAL IVP ONE (09:00)
[2018-07-11] MEDS: PRESERVISION AREDS2 FORMULA EYE VIT 1 EACH PO SCH (09:08)
[2018-07-11] MEDS: SACUBITRIL/VALSARTAN 24/26MG 1 EA TAB PO SCH (09:08)
[2018-07-11 09:09] VITALS: BP 114/70
[2018-07-11] MEDS: CARVEDILOL 25 MG TAB PO SCH (09:09)
[2018-07-11] MEDS: APIXABAN 2.5 MG TAB PO SCH (09:09)
--- NOTE | 2018-07-11 19:19 | GDS ---
SUPERVISING PUMPER GAGER: Americo Dunlap MD ADMISSION DIAGNOSES: 1. Ischemic cardiomyopathy. 2. Atrial fibrillation. 3. Biventricular automated implantable cardioverter defibrillator. DISCHARGE DIAGNOSES: 1. Ischemic cardiomyopathy. 2. Atrial fibrillation. 3. Biventricular automated implantable cardioverter defibrillator. 4. Status post AV node ablation. HOSPITAL COURSE: The patient presented July 10, 2018 for repeat AV node ablation in the setting of progressive heart failure and unsuccessful AV node ablation after an intraprocedure steam pop in June. He underwent successful reablation of his AV node with Dr. Americo Dunlap yesterday without any intra procedure complications. He has done well in the postprocedure period, although he did develop acute symptoms consistent with fluid volume overload and was diuresed with Lasix 40 mg IV daily x2 days. Post-procedure device interrogation did not demonstrate any underlying conduction. Telemetry continues to demonstrate frequent ventricular ectopy. He appears more euvolemic on exam today and is appropriate and stable for discharge home. PHYSICAL EXAMINATION: GENERAL APPEARANCE: No apparent distress. He is alert and oriented x4. VITAL SIGNS: Blood pressure 114/70, heart rate 93, SpO2 97% on room air, temperature 36.6. HEENT. Head normocephalic. Lips and tongue are pink and moist, with no signs of cyanosis. Conjunctivae are pink. NECK: Trachea is midline. 2+ carotid pulses bilaterally. No auscultated bruits. No jugular venous distention. RESPIRATORY: Lungs are slightly diminished on auscultation. No rhonchi, rales, or wheezes. No accessory muscle use. No intercostal muscle retraction. CARDIAC: Regular rate and rhythm. ABDOMEN: Soft and nontender. Bowel sounds are active x4 quadrants. SKIN: [place] and warm and dry. No cyanosis or clubbing. No peripheral edema. EXTREMITIES: Pulses 2 + bilaterally. Right pursestring suture removed yesterday from his right groin access site. No evidence of hematoma, redness, oozing, swelling, or warmth. LABORATORY STUDIES: Drawn today, white blood cell count 3.80, hemoglobin and hematocrit are stable. CMP is stable. BNP 15,600. Creatinine 1.4, this is trended down from 1.6 since admission. DISCHARGE MEDICATIONS: Please see discharge med reconciliation sheet. We have changed his torsemide from 20 mg p.r.n. to 20 mg daily. DISCHARGE INSTRUCTIONS: Post AV node ablation precautions reviewed in detail with patient and his . He will avoid heavy lifting and submerged bathing for 10 days. He will not engage in submerged bathing during this same time frame. He will follow up with Dr. Dunlap in [address] Rich in 1-2 weeks. He will contact our clinic if he experiences any new or worsening symptoms in the meantime. /[id number]/MODL MTDD
[2018-07-12] MEDS ORDERED: TORSEMIDE 20 MG TAB PO SCH (10:00)
== END 2018-07-11 13:44 | disposition home or self-care (01) ==
LOC: FCATH 11:56 → F2W 16:03
PROVIDERS: ADMIT Registered Nurse; ATTEND Internal Medicine Cardiovascular Disease
PROC: 5A1213Z Performance of Cardiac Pacing, Intermittent (ICD-10-PCS; principal; 2018-07-09)
PROC: 02583ZZ Destruction of Conduction Mechanism, Percutaneous Approach (ICD-10-PCS; principal; 2018-07-09)
PROC: B2161ZZ Fluoroscopy of Right and Left Heart using Low Osmolar Contrast (ICD-10-PCS; principal; 2018-07-09)
PROC: 4A023FZ Measurement of Cardiac Rhythm, Percutaneous Approach (ICD-10-PCS; principal; 2018-07-09)
DX: I25.5 Ischemic cardiomyopathy (principal); I48.91 Unspecified atrial fibrillation; I50.23 Acute on chronic systolic (congestive) heart failure; E87.70 Fluid overload, unspecified; J44.9 Chronic obstructive pulmonary disease, unspecified; I25.10 Atherosclerotic heart disease of native coronary artery without angina pectoris; N18.9 Chronic kidney disease, unspecified; E78.00 Pure hypercholesterolemia, unspecified; Z95.810 Presence of automatic (implantable) cardiac defibrillator; Z87.891 Personal history of nicotine dependence
CPT/HCPCS: 71046; 93005; 93306; 93623; 93650; C2630; J0461; J1644; J1940; J2704; J3010

== ENCOUNTER → 2018-07-16 | Outpatient (CLI) | payer OTHER, MEDICARE | LOC: BHFA 16:00 | PROVIDERS: ATTEND Internal Medicine Cardiovascular Disease | DX: I48.91 Unspecified atrial fibrillation (principal); R06.02 Shortness of breath; I47.2 Ventricular tachycardia; I50.22 Chronic systolic (congestive) heart failure ==

== ENCOUNTER → 2018-07-21 | Outpatient (CLI) | payer OTHER, MEDICARE | LOC: BHFA 13:15 | PROVIDERS: ATTEND Internal Medicine Cardiovascular Disease | DX: I48.91 Unspecified atrial fibrillation (principal); R06.02 Shortness of breath; I47.2 Ventricular tachycardia; I50.22 Chronic systolic (congestive) heart failure ==